=== PATIENT | male | born 1945 | race Caucasian/White ===

== ENCOUNTER → 2024-08-22 10:24 | Outpatient (REF) | payer MEDICARE, OTHER, SELFPAY ==
[2024-08-22 15:49] LABS: % Basophils 0.4 % (0-2); % Eosinophils 3.3 % (0-6); % Immature Granulocytes 4.3 % (0-0.5); % Lymphocytes 13.8 % (20.5-51.1); % Monocytes 8.5 % (1.7-9.3); % Neutrophils 69.7 % (42.2-75.2); Absolute Basophils 0.1 10^3/uL (0-0.2); Absolute Eosinophils 0.6 10^3/uL (0-0.7); Absolute Immature Granulocytes 0.7 10^3/uL (0-0.05); Absolute Lymphocytes 2.3 10^3/uL (1.2-3.4); Absolute Monocytes 1.4 10^3/uL (0.1-0.6); Absolute Neutrophils 11.7 10^3/uL (1.4-6.5); Hematocrit 40.1 % (39.0-52.0); Hemoglobin 13.2 g/dL (13.0-18.0); Mean Corp Hgb Conc. 32.9 g/dL (33.0-37.0); Mean Corpuscular Hgb 32.8 pg (27.0-31.0); Mean Corpuscular Volume 99.8 fL (80.0-94.0); Mean Platelet Volume 8.8 fL (7.4-10.4); Nucleated Red Blood Cells % 0 % (-); Platelet Count 352 10^3/uL (130-400); Red Blood Cell Count 4.02 10^6/uL (4.70-6.10); Red Cell Dist. Width 11.6 % (11.5-14.5); Urine Albumin Negative (Neg - Trace); Urine Bilirubin Negative (Negative); Urine Character Slightly Cloudy (Clear); Urine Color Yellow; Urine Glucose Negative (Negative); Urine Ketone Negative (Negative); Urine Leukocyte Negative (Negative); Urine Nitrite Negative (Negative); Urine Occult Blood Negative (Negative); Urine Specific Gravity 1.015 (<1.030); Urine Urobilinogen Negative (Neg - 1+); White Blood Cell Count 16.7 10^3/uL (4.8-10.8)
[2024-08-22 15:50] LABS: ALT (SGPT) 16 U/L (0-50); AST (SGOT) 16 U/L (17-59); Alkaline Phosphatase 92 U/L (38-126); Blood Urea Nitrogen 33 mg/dl (9-20); Calcium 10.9 mg/dl (8.4-10.2); Carbon Dioxide 27 mmol/L (22-30); Chloride 102 mmol/L (98-107); Creatine Phosphokinase 21 U/L (55-170); Direct Bilirubin 0.1 mg/dl (0.0-0.4); Glucose 75 mg/dl (70-99); HDL Cholesterol 50 mg/dl; LDL Cholesterol, Calculated 96 mg/dl; Phosphorus 3.9 mg/dl (2.5-4.5); Potassium 4.5 mmol/L (3.5-5.1); Sodium 140 mmol/L (135-145); Total Bilirubin 0.5 mg/dl (0.2-1.3); Total Cholesterol 181 mg/dl (50-199); Total Protein 6.7 g/dl (6.3-8.2); Triglyceride 175 mg/dl (10-149); Very Low Density Lipoprotein 35 mg/dl (0-30); eGFR 38.05
[2024-08-22 16:17] LABS: TSH 2.19 uIU/ml (0.47-4.68)
== END ==
LOC: HWLAB 10:24
PROVIDERS: ATTENDING PHYSICIAN Internal Medicine Cardiovascular Disease; FAMILY PHYSICIAN Family Medicine; REFERRING PHYSICIAN Student in an Organized Health Care Education/Training Program
DX: J20.9 Acute bronchitis, unspecified (principal); E78.2 Mixed hyperlipidemia; I10 Essential (primary) hypertension; E07.9 Disorder of thyroid, unspecified; E78.5 Hyperlipidemia, unspecified
CPT/HCPCS: 36415; 71046; 80053; 80061; 81003; 82248; 82550; 83735; 84100; 84439; 84443; 84550; 85025

== ENCOUNTER 2024-09-12 19:54 | Inpatient (IN) | payer MEDICARE, OTHER, SELFPAY ==
[2024-09-12] VITALS (9 sets, daily range): BP systolic 95–159; BP diastolic 50–139; BMI 22.8; BMI 21.4
[2024-09-12 14:55] LABS: % Basophils 0.5 % (0-2); % Eosinophils 2.3 % (0-6); % Immature Granulocytes 1.3 % (0-0.5); % Lymphocytes 22.8 % (20.5-51.1); % Monocytes 8.7 % (1.7-9.3); % Neutrophils 64.4 % (42.2-75.2); Absolute Eosinophils 0.2 10^3/uL (0-0.7); Absolute Immature Granulocytes 0.1 10^3/uL (0-0.05); Absolute Lymphocytes 1.8 10^3/uL (1.2-3.4); Absolute Monocytes 0.7 10^3/uL (0.1-0.6); Absolute Neutrophils 5.1 10^3/uL (1.4-6.5); Hematocrit 34.8 % (39.0-52.0); Hemoglobin 11.6 g/dL (13.0-18.0); Mean Corp Hgb Conc. 33.3 g/dL (33.0-37.0); Mean Corpuscular Hgb 31.6 pg (27.0-31.0); Mean Corpuscular Volume 94.8 fL (80.0-94.0); Mean Platelet Volume 8.7 fL (7.4-10.4); Nucleated Red Blood Cells % 0 % (-); Platelet Count 316 10^3/uL (130-400); Red Blood Cell Count 3.67 10^6/uL (4.70-6.10); Red Cell Dist. Width 11.5 % (11.5-14.5); White Blood Cell Count 7.8 10^3/uL (4.8-10.8)
[2024-09-12 15:04] LABS: COVID-19 Antigen Negative (Negative)
[2024-09-12 15:17] LABS: ALT (SGPT) 17 U/L (0-50); AST (SGOT) 17 U/L (17-59); Albumin 4.3 g/dl (3.5-5.0); Alkaline Phosphatase 82 U/L (38-126); Blood Urea Nitrogen 33 mg/dl (9-20); Calcium 12.8 mg/dl (8.4-10.2); Carbon Dioxide 29 mmol/L (22-30); Chloride 102 mmol/L (98-107); Glucose 104 mg/dl (70-99); Potassium 5.6 mmol/L (3.5-5.1); Sodium 139 mmol/L (135-145); Total Bilirubin 0.6 mg/dl (0.2-1.3); Total Protein 7.1 g/dl (6.3-8.2); eGFR 25.65
--- NOTE | 2024-09-12 16:55 | ED.GENMED ---
History of Present Illness
General
Chief Complaint: Breathing Problem
Source: patient
Time Seen by Provider: 09/12/24 16:30
History of Present Illness
History of Present Illness:
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
oxygen 2 L via nasal cannula at the beginning of August, increased to 3 L via nasal cannula due to worsening exertional dyspnea. Patient notes that he recently completed a 10-day course of amoxicillin about a week ago for pneumonia but reports
continued cough, intermittent yellow-green sputum production and worsening exertional dyspnea. Patient denies any fevers, chest pain, palpitations, diaphoresis, lower extremity edema, abdominal pain. He notes that he has been feeling he needs to
use his inhalers more frequently despite already taking them 4 times per day on a normal basis. Patient notes that he also intermittently feels that he is having some word finding problems stating at times he feels that he cannot find the right
word that he wants to say or knows what he wants to say but he cannot get the words out. This has been ongoing for an unknown duration of time. Patient notes the recent passing of his younger brother, and aunt and believes he has also been
experiencing a lot of anxiety from this.
Past History
Past History
ED Past Medical History: Asthma, CAD and COPD
ED Past Surgical History: Cardiac (Cardiac stent)
Social History
Tobacco: Former smoker
Alcohol: None
Drug: None
Personal:
Living: alone
Review of Systems
Review of Systems
All Other Systems: ROS reviewed and negative except as documented in HPI and ROS
Phy Exam
Physical Exam
Physical Exam:
GENERAL: Alert , in no apparent distress
HEAD: Normocephalic atraumatic
EYE: conjunctiva clear
NECK: Supple
ENT: o/p clr, mmm.
CARDIAC: Regular rate and rhythm, occasional PACs seen on telemetry
LUNGS: Diminished lung sounds throughout with scattered wheezing, no tachypnea, no accessory muscle use, patient speaking full sentences but soft spoken
NEUROLOGICAL: Alert and oriented
SKIN: Warm and dry, skin intact.
MUSCULOSKELETAL: well perfused. no edema
PSYCH: Normal and appropriate interaction.
Scores
Heart Failure Risk
Heart Failure Risk Score: Not Applicable
Heart Score for Chest Pain Patients
STEMI patient?: Not applicable
Withdrawal Assessment of Alcohol
Withdrawal Assessment Completed?: Not applicable
Course
Orders/Labs/Results
Orders:
Orders
09/12/24 14:36
Electrocardiogram (*1) Urgent
Reason for Study: Chest Pain
CR Chest - 2 Views Urgent
Comment:
Reason For Exam: sob
09/12/24 14:38
COVID-19 Antigen Urgent
Source: Nasal Swab
Complete Blood Count/With Diff Urgent
Comprehensive Metabolic Panel Urgent
Influenza A+B Rapid Molecular Urgent
CHRISTIAN Source: Nasal Swab
Specimen Description:
09/12/24 16:41
Add On- LAB Urgent
Tests Added?: troponin, BNP
09/12/24 16:48
Pro-BNP [NT-proBNP] Urgent
Troponin I Urgent
09/12/24 16:54
Ipratropium/Albuterol Sulfate [Duoneb] 3 ml INH R NOW ONE
MethylPREDNISolone PF [Solu-Medrol Pf] 60 mg IV NOW STA
Abnormal Lab Results
09/12/24
14:38
RBC 3.67 L 10^6/uL
(4.70-6.10)
Hgb 11.6 L g/dL
(13.0-18.0)
Hct 34.8 L %
(39.0-52.0)
MCV 94.8 H fL
(80.0-94.0)
MCH 31.6 H pg
(27.0-31.0)
Abs Immat Gran (auto) 0.1 H 10^3/uL
(0-0.05)
Absolute Monos (auto) 0.7 H 10^3/uL
(0.1-0.6)
Immature Gran % 1.3 H %
(0-0.5)
Potassium 5.6 H mmol/L
(3.5-5.1)
BUN 33 H mg/dl
(9-20)
Creatinine 2.5 H mg/dL
(0.7-1.3)
Glucose 104 H mg/dl
(70-99)
Calcium 12.8 H mg/dl
(8.4-10.2)
09/12/24 14:38
09/12/24 14:38
Vital Signs
Initial and Last Documented VS:
Initial Vital Signs
Temp Pulse Resp BP Pulse Ox
98.4 F 76 22 108/50 96
09/12/24 14:28 09/12/24 14:28 09/12/24 14:28 09/12/24 14:28 09/12/24 14:28
Last Documented Vital Signs
Temp Pulse Resp BP Pulse Ox
98.4 F 70 17 95/59 98
09/12/24 14:28 09/12/24 16:45 09/12/24 16:45 09/12/24 16:38 09/12/24 16:45
MDM/Problems Addressed
Differential Diagnosis Includes:
Acute on chronic COPD exacerbation, recurring pneumonia, valvular dysfunction, cardiac arrhythmia, PE considered however no chest pain, tachycardia or hemoptysis. CHF, anxiety/depression due to recent family deaths
MDM/Problems Addressed:
79-year-old male presenting to the emergency department for evaluation at the request of his steam table worker for worsening exertional dyspnea. Patient is quite thin, soft spoken. Has increased his oxygen from 2 L to 3 although noting his new oxygen
requirement is a new diagnosis/treatment over the last month as well. Patient currently satting 98% on 3 L via nasal cannula. Labs initiated on arrival show no leukocytosis, mild anemia, mild hyperkalemia and acute on chronic renal dysfunction. A
troponin and BNP were added. Chest x-ray shows findings consistent with COPD but no pneumonia or effusions. EKG without ischemic changes but there is occasional PACs. Given patient's medical history plan will be for admission pending remaining ER
workup.
Chronic conditions affecting care: COPD
Acute Exacerbation and/or Progression of Chronic Illness: COPD
*Pulse Oximetry
Patient hypoxic: yes
*EKG
Interpreted by ED Provider?: Yes
Heart Rate: 72
Rate: normal
Rhythm: sinus and PAC's
[place]: normal axis
Ischemia: no ischemia
*Pediatric Assistant Interpretation
Rate: normal
Rhythm: sinus
*Critical Care Note
Total Time (30-74mins, 75-104mins- exclusive of procedures): Not Applicable
Data Reviewed
Review of Other/Old Records Reveals: Labs and Records
Source: patient and records
Patient Management
Discussion with other providers: Hospitalist
Escalation/DeEscalation of care consider admission/obs:
Patient's troponin and BNP are within normal limits. Suspect COPD exacerbation likely secondary to recent pneumonia is the most likely diagnosis. Patient will also need further evaluation of his acute kidney injury. Hospitalist team accepts for
continued evaluation and treatment.
ED Attending Note
-
Portions of this chart may have been created with voice recognition software.� Occasional wrong word or��sound alike� substitutions may have occurred due to the inherent limitations of voice recognition software.
Discharge Plan
Departure
Patient Disposition: Admit
Date of Disposition: 09/12/24
Time of Disposition: 17:42
Presentation/result/management discussed w/ accepting MD/DO: Hospitalist
Discharge Problem:
Acute exacerbation of chronic obstructive pulmonary disease, LILIAN (acute kidney injury)
Prescriptions:
No Action
aspirin 325 MG tablet
325 mg PO DAILY
alprazolam 1 MG tablet
1 mg PO TID
Patient Comments:
06/03/2021: last filled 04/07/21, 270 tabs for 90 days from [facility]
lisinopril 20 MG tablet
20 mg PO DAILY
cyanocobalamin (vitamin B-12) 1,000 MCG tablet
2,000 mcg PO QPM
amlodipine 5 MG tablet
5 mg PO DAILY
sildenafil [Viagra] 100 MG tablet
100 mg PO DAILYPRN PRN (Reason: ed)
promethazine-phenylephrine [Promethazine VC] 473 ML syrup
5 ml PO Q6HPRN PRN (Reason: cough)
budesonide 0.25 MG/2 ML suspension for nebulization
0.25 mg inhalation R BID@
Patient Comments:
mixed in a neb with brovana
folic acid 1 MG tablet
1 mg PO QPM
albuterol sulfate 1 PUFF HFA aerosol inhaler
2 puff inhalation R Q4HPRN PRN (Reason: sob)
finasteride 5 MG tablet
5 mg PO DAILY
Saccharomyces boulardii 250 MG capsule
250 mg PO QPM
arformoterol [Brovana] 15 MCG/2 ML solution for nebulization
15 mcg inhalation R BID@
cholecalciferol (vitamin D3) 2,000 UNITS tablet
2,000 units PO QPM
umeclidinium-vilanterol [Anoro Ellipta] 1 EACH blister with device
1 puff inhalation R DAILY
ipratropium-albuterol 3 ML solution for nebulization
3 ml inhalation R Q4HPRN PRN (Reason: dyspnea) Qty: 20 0RF
azithromycin 250 MG tablet
250 mg PO DAILY Qty: 5 0RF
benzonatate 100 MG capsule
100 mg PO TIDPRN PRN (Reason: cough) Qty: 20 0RF
acetylcysteine 4 ML solution
2 ml inhalation R Q6 Qty: 20 0RF
guaifenesin [Mucus Relief ER] 600 MG tablet extended release 12hr
600 mg PO Q12 0RF
prednisone 10 MG tablet
10 mg PO DAILY Qty: 60 0RF
Rx Instructions:
5 tabs daily x 3d, 4 tabs daily x 3d, 3 tabs daily x 3d, 2 tabs daily x 3d, 1 tab daily x 3d, 1/2 tab daily thereafter.
Interventions
Interventions:
*Risk Screen - Suicide Last Done: 09/12/24 14:28
*General Assessment Last Done: 09/12/24 14:28
*Neglect/Abuse Screening Last Done: 09/12/24 14:28
*ED COVID-19 Vaccine History Last Done: 09/12/24 16:51
ED- Cardiac Assessment Last Done: 09/12/24 16:41
ED- Pulmonary Assessment Last Done: 09/12/24 16:41
Discharge Date and Time
Print Language: JORDANIAN
[2024-09-12] MEDS: DUONEB 3 ML INH ×2 (17:11→21:39)
[2024-09-12] MEDS: SOLU-MEDROL PF 60 MG IV (17:11)
[2024-09-12 17:31] LABS: NT-proBNP 282 pg/ml; Troponin I < 0.012 ng/ml
--- NOTE | 2024-09-12 18:00 | HPS.HSE ---
Addendum entered and electronically signed by Ivon Issa DO 09/13/24 01:30:
The patient is seen and examined, and I have reviewed the patient with ECHO VASCULAR TECH, Phil[place], and agree with her history and physical, assessment and plan of care as per below.
Vital reviewed
Labs reviewed
Respiratory status is stable at this time
Lungs with decreased breath sounds, NAD
CV no m/r/g
Neuro no focal deficits
#Acute exacerbation of COPD
-Pulm Cx appreciated
-nebs, mucomyst
-Dexa IV TID and wean
-O2 per NC, respiratory therapy, and wean as able
LILIAN on CKD
-cont IV fluids
-repeat BMP in am
Original Note:
Family Physician
-
Family Physician: Jeramie Garcia
Chief Complaint
-
shortness of breath
History of Present Illness
Patient is a 79-year-old male with past medical history significant for COPD, CAD, hypertension and BPH who presented to [place] ED for evaluation for progressively worsening shortness of breath. Patients hris specialist Dr. Acosta recommend patient
present to ED for evaluation of progressively worsening exertional dyspnea. Patient was recently started on home oxygen at 2L approximately one month ago. Since then oxygen has been titrated to 3L for worsening exertional dyspnea. Patient reports
recently completing antibiotic course for pneumonia approximately 1 week ago. He reports he continues to have lingering cough, intermittent sputum production and worsening exertional dyspnea. Patient denies any fever, chills, chest pain, nausea,
vomiting, constipation, diarrhea or urinary symptoms.
Medical History
Past Medical History
Past Medical History: Reports Other
Additional Past Medical History:
COPD
CAD
benign hypertension
BPH
Past Surgical History: Reports Other
Additional Past Surgical History:
cardiac stent
basal cell carcinoma removed
Social History
Tobacco: Former Smoker (quit in 1996)
Alcohol: None
Drug: None
Living: Alone
Employment: Retired
Family History
Family History: Not pertinent
Allergies / Home Medications
Allergies reflects when Allergies were last updated in [employer].
Home Medications with original date entered in [employer]
Allergy/Medication List:
Allergies
Allergy/AdvReac Type Severity Reaction Status Date / Time
Tetanus Vaccines and Toxoid Allergy Severe Shortness Verified 09/12/24 14:35
[Tetanus] of Breath
clarithromycin [From Biaxin] Allergy Vomiting Verified 09/12/24 14:35
Home Medications
aspirin 325 mg tablet 325 mg PO DAILY Blood clot prevention/tx 11/03/09
Saccharomyces boulardii 250 mg capsule 250 mg PO QPM Gastrointestinal issue 06/03/21
alprazolam 1 mg tablet 1 mg PO TID PRN Mental Health/Anxiety 06/03/21
amlodipine 5 mg tablet 5 mg PO DAILY Blood pressure 06/03/21
arformoterol 15 mcg/2 mL solution for nebulization (Brovana) 15 mcg inhalation R BID@1200,2000 osteoporosis 06/03/21
cholecalciferol (vitamin D3) 50 mcg (2,000 unit) tablet 2,000 units PO QPM Supplement 06/03/21
cyanocobalamin (vitamin B-12) 1,000 mcg tablet 2,000 mcg PO QPM Supplement 06/03/21
finasteride 5 mg tablet 5 mg PO DAILY Urinary issue 06/03/21
folic acid 1 mg tablet 1 mg PO QPM Supplement 06/03/21
lisinopril 20 mg tablet 20 mg PO DAILY Blood pressure 06/03/21
sildenafil 100 mg tablet (Viagra) 100 mg PO DAILYPRN PRN ed 06/03/21
umeclidinium 62.5 mcg-vilanterol 25 mcg/actuation powdr for inhalation (Anoro Ellipta) 1 puff inhalation R DAILY Lung/breathing issues 06/03/21
acetylcysteine 100 mg/mL (10 %) solution 2 ml inhalation R Q6 #20 vials 06/10/21
benzonatate 100 mg capsule 100 mg PO TIDPRN PRN cough #20 caps 06/10/21
Prostagenix 1 tab PO DAILY 09/12/24
albuterol sulfate 90 mcg/actuation aerosol inhaler (Ventolin HFA) 2 puff inhalation 6XD PRN sob 09/12/24
atorvastatin 40 mg tablet 40 mg PO QPM 09/12/24
guaifenesin 600 mg tablet, extended release 12 hr (Mucus Relief ER) 600 mg PO DAILY 09/12/24
ipratropium 0.5 mg-albuterol 3 mg (2.5 mg base)/3 mL nebulization soln 3 ml inhalation BIDPRN PRN dyspnea 09/12/24
prednisone 2.5 mg tablet 1.25 mg PO BID 09/12/24
Review of Systems
-
History Source: Patient and Family
Constitutional: Reports No Symptoms
EENT: Reports No Symptoms
Respiratory: Reports Cough and Other (exertional dyspnea)
Cardiac: Reports No Symptoms
Abdomen/GI: Reports No Symptoms
: Reports No Symptoms
Musculoskeletal: Reports No Symptoms
Skin: Reports No Symptoms
Neurological: Reports No Symptoms
Endocrine: Reports No Symptoms
Hematologic/Lymphatic: Reports No Symptoms
Psych: Reports No Symptoms
Physical Exam
Vital Signs
Vital Signs
Temp Pulse Resp BP Pulse Ox
98.4 F 70 17 95/59 98
09/12/24 14:28 09/12/24 16:45 09/12/24 16:45 09/12/24 16:38 09/12/24 16:45
Physical Exam
General: Well Developed, Well Nourished, No Apparent Distress, Comfortable and Conversant
HEENT: NormoCephalic, Moist mucous membranes, Atraumatic, Nose Appears Normal and Ears Appear Normal
Respiratory: Decreased Breath Sounds
Cardiac: S1/S2 and Regular Rhythm; No Murmur, Rub or Gallop
Breast: Deferred by me
GI: Soft, Non Tender, Non Distended and Normal Bowel Sounds; No Organomegaly
Rectal: Deferred by Provider
Genito-urinary: Deferred by me
Musculoskeletal: No Clubbing, No Cyanosis and No Edema
Skin: Warm and IV/Catheter Site; No Rash
Neuro: Awake, Alert, AO x 3 and Nonfocal/grossly intact
Psych: Calm and Intact Judgment/Insight
Laboratory Results
-
09/12/24 14:38
09/12/24 14:38
Laboratory Results
Total Bilirubin 0.6 mg/dl (0.2-1.3) 09/12/24 14:38
AST 17 U/L (17-59) 09/12/24 14:38
ALT 17 U/L (0-50) 09/12/24 14:38
Alkaline Phosphatase 82 U/L (38-126) 09/12/24 14:38
Troponin I < 0.012 ng/ml 09/12/24 16:48
Data Reviewed
-
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 No findings to suggest pneumonia, vascular congestion, pneumothorax or pleural effusion.)
Lab Data: Labs Reviewed by me (BUN 33, Creat 2.5)
Impression/Plan
-
IMPRESSION/PLAN:
#COPD exacerbation
recent PNA treatment out patient finishing antibiotics 1 week ago
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
No findings to suggest pneumonia, vascular congestion, pneumothorax or pleural effusion.
- admit to med/surg
- IV Decadron
- DuoNebs
- Mucomyst Neb
- Mucinex
- consult pulmonary
- continue Ellipta, Brovana,
- supportive care
#acute kidney injury
BUN 33, Creat 2.5
- IVF
- monitor BMP
#hyperkalemia
K+ 5.6
- monitor BMP
#CAD
- continue aspirin, atorvastatin, and folic acid
#benign hypertension
- continue amlodipine, and lisinopril
#BPH
- continue finasteride
Code status: DNR
DVT Prophylaxis: heparin sq
[2024-09-12] MEDS: MUCOMYST 10% 2 ML INH (21:40)
--- NOTE | 2024-09-12 21:40 | PTCARENOTE ---
Pt arrived from the ED via stretcher. Patient ambulated from the stretcher to the bed. 96% on on 3L NC. Patient brought in his home O2 machine. Stored safely with patient. No complaints of pain, AAOx3, VSS. Patient short of breath with exertion. Pt
instructed to use the call hernandez for any assistance. Oriented to the room, hernandez is within reach.
[2024-09-12] MEDS: MUCINEX 1200 MG PO (22:39)
[2024-09-12] MEDS: NSS 1000 IV (22:40)
[2024-09-12] MEDS: DECADRON 4 MG IV (22:40)
[2024-09-12] MEDS: XANAX 1 MG PO (22:40)
[2024-09-13] MEDS: MUCOMYST 10% INH ×2 (02:00→08:04)
[2024-09-13 06:56] LABS: % Immature Granulocytes 1.1 % (0-0.5); % Lymphocytes 13.4 % (20.5-51.1); % Monocytes 1.5 % (1.7-9.3); Absolute Immature Granulocytes 0.1 10^3/uL (0-0.05); Absolute Lymphocytes 0.6 10^3/uL (1.2-3.4); Absolute Monocytes 0.1 10^3/uL (0.1-0.6); Absolute Neutrophils 3.9 10^3/uL (1.4-6.5); Hematocrit 31.4 % (39.0-52.0); Hemoglobin 10.5 g/dL (13.0-18.0); Mean Corp Hgb Conc. 33.4 g/dL (33.0-37.0); Mean Corpuscular Hgb 31.8 pg (27.0-31.0); Mean Corpuscular Volume 95.2 fL (80.0-94.0); Mean Platelet Volume 8.5 fL (7.4-10.4); Nucleated Red Blood Cells % 0 % (-); Platelet Count 272 10^3/uL (130-400); Red Cell Dist. Width 11.4 % (11.5-14.5); White Blood Cell Count 4.7 10^3/uL (4.8-10.8)
[2024-09-13 07:15] VITALS: BP 91/46
[2024-09-13 07:19] LABS: Blood Urea Nitrogen 39 mg/dl (9-20); Calcium 12.2 mg/dl (8.4-10.2); Carbon Dioxide 28 mmol/L (22-30); Chloride 103 mmol/L (98-107); Estimated Creatinine Clearance 23 ml/min; Glucose 139 mg/dl (70-99); Sodium 138 mmol/L (135-145); eGFR 25.65
[2024-09-13] MEDS: STRIVERDI RESPIMAT INH (08:04)
--- NOTE | 2024-09-13 09:15 | W.PN.HOSP.TC ---
Today's Communication/Plan
-
LE Venous Doppler, IVF, hold nephrotoxic agents, c/w [place], trend BMP/Electrolytes in the AM.
Assessment / Plan
Assessment / Plan
79 year old Man
#Progressive SOB/Dyspnea
- Has recently been put on supplemental O2 with progression to 3L over one month. CXR + for hyperinflated lungs.
- Echo was done which showed EF 60%. No signs of volume overload
- Etiology uncertain, will check LE Venous Doppler to rule out source of Thromboembolism/PE
#Acute exacerbation of COPD/Pleural Asbestosis
- Received one dose of dexamethasone with little relief in SOB. Prior use of steroids without relief. Suspect less likely reactive airway contribution to dyspnea presentation. Will wean steroids per Pulmonary.
- C/w home regimen of nebs/Mucinex/Pulmicort/Tessalon Pearls TID/duonebs
- Obtain Chest CT
- Pulm following
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
- Elevated Early Childhood Education Coordinator to 2.5 (was 1.8 in 2023), BUN 39.
- Hold Lisinopril. C/w Flomax/Finasteride
- [place] Cath placed
- Nephro following
#Hyperkalemia
- 5.4 -> 6.0. ECG on admission showing peaked T waves
- insulin/dextrose & Lokelma + IVF NS infusion
- repeat BMP in afternoon/tomorrow
#Hypercalcemia - 12.2 on admission.
- PTH ordered
- c/w IVF NS
- Renal U/s Ordered
- Nephro following
#Essential Hypertension - Holding lisinopril as above, holding Amlodipine
#Hypercholesterolemia - c/w Lipitor
#Anxiety - c/w Xanax 1mg TID prn
#BPH - c/w finasteride as above
Diet: Regular
DVT Ppx - heparin SC
Code Status - DNR
Anticipated Discharge: > 48 hours
Subjective/Interval History
-
Feeling about the same as when he came in. Still short of breath, however no new fevers or chills.
Objective Data
-
Labs:
Laboratory Results
09/13/24
06:26
WBC 4.7 L
Hgb 10.5 L
Hct 31.4 L
Plt Count 272
Sodium 138
Potassium 6.0 H
Chloride 103
Carbon Dioxide 28
BUN 39 H
Creatinine 2.5 H
Glucose 139 H
Calcium 12.2 H
Vital Signs:
Vital Signs
Temp Pulse Resp BP Pulse Ox
97.4 F 65 20 91/46 98
09/13/24 07:15 09/13/24 07:15 09/13/24 07:15 09/13/24 07:15 09/13/24 07:15
I&O
09/12/24 09/13/24 09/14/24
06:59 06:59 06:59
Intake Total 1120 / 1120
Output Total 200 / 200 100 / 100
Balance 920 / 920 -100 / -100
Review of Systems
-
History Source: Patient
Constitutional: Denies Fever or Chills
EENT: Denies Sore Throat or Runny Nose
Respiratory: Reports Trouble Breathing; Denies Cough, Hemoptysis, Wheezing or Pleurisy
Cardiac: Denies Chest Pain, Palpitations or Syncope
Abdomen/GI: Denies Abdominal Pain, Nausea, Vomiting or Diarrhea
Breast: Reports N/A
Genitourinary: Reports Incontinence; Denies Dysuria, Frequency or Flank Pain
Musculoskeletal: Denies Joint Pain, Joint Swelling or Muscle Pain
Skin: Denies Itching or Rash
Neuro: Reports Weakness; Denies Dizzy or Headache
Hematologic / Lymphatic: Denies Bleeding
Physical Exam
-
General: Well Developed, Well Nourished, No Apparent Distress and Appears Chronically Ill
HEENT: Normocephalic, Atraumatic, Moist Mucous Membranes, Anicteric, [place] Conjunctivae, PERRLA, Nose Appears Normal, Ears Appear Normal and Oxygen (Nasal Cannula)
Respiratory: Decreased Breath Sounds
Cardiac: Regular Rhythm and S1/S2; Negative Murmur or Rub
GI: Soft, Nontender, Nondistended and Normal Bowel Sounds
Musculoskeletal: No Clubbing, No Cyanosis and No Edema
Skin: Warm, Dry and IV Access / Catheter Site
Neuro: AO x 3
[2024-09-13] MEDS: DECADRON 4 MG IV ×2 (09:17→21:11)
[2024-09-13] MEDS: ASPIRIN 325 MG PO (09:18)
[2024-09-13] MEDS: PROSCAR 5 MG PO (09:18)
[2024-09-13] MEDS: MUCINEX 1200 MG PO ×2 (09:18→21:10)
[2024-09-13] MEDS: NORVASC 5 MG PO (09:25)
[2024-09-13] MEDS: ZESTRIL 20 MG PO (09:26)
--- NOTE | 2024-09-13 09:28 | CON.PUL ---
Consultation
Consultation Request
Date/Time Consultation Requested: 09/13
Date/Time Consultation Performed: 09/13
Reason for Consultation: COPD, shortness of breath
Medical History
-
History of Present Illness:
History obtained from the patient and reviewing the records. Patient is a 79-year-old male with history of COPD, coronary disease on home oxygen over the past month. Patient sees pulmonary at [facility]. He is describing worsening shortness of
breath over the past few weeks with increased fatigue, weak dry cough. He did complete a course of antibiotics 1 week ago. He saw his pulmonary physician on the day of admission, and pulmonary physician recommended he go to the ED. Patient came
to [place] as he now recently moved to the [place] area. Upon arrival, afebrile, pulse 76, breathing at 22, blood pressure 108/50, 96%. Chest x-ray without acute findings. Patient was noted to require 3 L. Patient was admitted for COPD
exacerbation. We are asked to help from pulmonary standpoint
On further questioning, patient states he is profoundly weak over the past month. He denies any recent falls, hemoptysis, fevers, chills. He has been treated with steroids and antibiotics over the past 1 to 2 months although I could not confirm
this. Patient is on outpatient inhaler regimen for COPD, feels he is requiring albuterol more often. Patient lives with family
.
PMH: Hypertension, hyperlipidemia, history of coronary disease with stent in the past, COPD recently placed on oxygen therapy in August 2024, history of aortic aneurysm, suspected asbestos lung disease with calcified pleural plaque, BPH
Past Medical History
Past Medical History: None (See above)
Past Surgical History: None (See above)
Social History
Tobacco: Former Smoker (Less than [id number], quit 1996)
Alcohol: None
Drug: None
Personal:
Living: With Family
Employment: Retired
Environmental Exposures: Exposed to asbestos in the past
Family History
Family History: Other (Known history of lung disease, lung cancer)
Allergies / Home Medications
Allergies
Allergy/AdvReac Type Severity Reaction Status Date / Time
Tetanus Vaccines and Toxoid Allergy Severe Shortness Verified 09/12/24 14:35
[Tetanus] of Breath
clarithromycin [From Biaxin] Allergy Vomiting Verified 09/12/24 14:35
Home Medications
�Medication �Instructions �Recorded �Confirmed �Last Taken �Type
aspirin 325 mg tablet 325 mg PO DAILY Blood clot 11/03/09 09/12/24 06/03/21 History
prevention/tx
Saccharomyces boulardii 250 mg 250 mg PO QPM Gastrointestinal 06/03/21 09/12/24 06/03/21 History
capsule issue
alprazolam 1 mg tablet 1 mg PO TID PRN Mental 06/03/21 09/12/24 06/03/21 History
Health/Anxiety
amlodipine 5 mg tablet 5 mg PO DAILY Blood pressure 06/03/21 09/12/24 06/03/21 History
arformoterol 15 mcg/2 mL solution 15 mcg inhalation R BID@1200,2000 06/03/21 09/12/24 Unknown History
for nebulization (Brovana) osteoporosis
cholecalciferol (vitamin D3) 50 2,000 units PO QPM Supplement 06/03/21 09/12/24 06/03/21 History
mcg (2,000 unit) tablet
cyanocobalamin (vitamin B-12) 2,000 mcg PO QPM Supplement 06/03/21 09/12/24 06/03/21 History
1,000 mcg tablet
finasteride 5 mg tablet 5 mg PO DAILY Urinary issue 06/03/21 09/12/24 06/03/21 History
folic acid 1 mg tablet 1 mg PO QPM Supplement 06/03/21 09/12/24 06/03/21 History
lisinopril 20 mg tablet 20 mg PO DAILY Blood pressure 06/03/21 09/12/24 09/12/24 History
sildenafil 100 mg tablet (Viagra) 100 mg PO DAILYPRN PRN ed 06/03/21 09/12/24 Unknown History
umeclidinium 62.5 mcg-vilanterol 1 puff inhalation R DAILY 06/03/21 09/12/24 06/03/21 History
25 mcg/actuation powdr for Lung/breathing issues
inhalation (Anoro Ellipta)
benzonatate 100 mg capsule 100 mg PO TIDPRN PRN cough #20 caps 06/10/21 09/12/24 Unknown Rx
Prostagenix 1 tab PO DAILY Supplement 09/12/24 09/12/24 Unknown History
albuterol sulfate 90 mcg/actuation 2 puff inhalation 6XD PRN sob 09/12/24 09/12/24 Unknown History
aerosol inhaler (Ventolin HFA)
atorvastatin 40 mg tablet 40 mg PO QPM High Cholesterol 09/12/24 09/12/24 Unknown History
guaifenesin 600 mg tablet, 600 mg PO DAILY Congestion 09/12/24 09/12/24 Unknown History
extended release 12 hr (Mucus
Relief ER)
ipratropium 0.5 mg-albuterol 3 mg 3 ml inhalation BIDPRN PRN dyspnea 09/12/24 09/12/24 Unknown History
(2.5 mg base)/3 mL nebulization
soln
prednisone 2.5 mg tablet 1.25 mg PO BID Autoimmune Disorder 09/12/24 09/12/24 Unknown History
acetylcysteine 100 mg/mL (10 %) 2 ml inhalation R Q6 09/13/24 Unknown History
solution Lung/Breathing Issues
Review of Systems
-
All other systems: Negative unless noted
Vitals / Labs / Diagnostic Testing
Vital Signs
Temp Pulse Resp BP Pulse Ox
97.4 F 65 20 91/46 98
09/13/24 07:15 09/13/24 07:15 09/13/24 07:15 09/13/24 07:15 09/13/24 07:15
Lab Data
09/13/24 06:26
09/13/24 06:26
Microbiology
09/12/24 14:38 Nasal Swab Influenza Types A & B (PACO) - Final
Negative for Influenza A & B, NAAT
Negative results must be combined with clinical observations
and patient history.
Nucleic Acid Amplification test (NAAT)performed on the
[employer] platform.
Diagnostic Testing:
Physical Exam
-
HEENT: Normocephalic, Anicteric and Other (Patient generally weak)
Cardiovascular: S1/S2, Regular Rhythm, Murmur (2/6 systolic murmur left sternal border), Peripheral Edema (n) and Calf Tenderness (n)
Respiratory: Wheeze (n), Rales (n), Rhonchi (n), Non-Labored Respirations and Other (Decreased breath sounds, poor air movement)
GI: Soft, Non Distended and Non Tender
Neurology: Awake, Alert and No Motor Deficits (Generally weak, moves all extremities)
Skin: Other (Mild pallor, no cyanosis, no rash)
General: Comfortable
Assessment
-
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
respiratory symptoms, admitted for acute COPD exacerbation, hypoxic respiratory insufficiency requiring 3 L
Progressive dyspnea x 1 month
Failed outpatient course of antibiotics and steroids over the past month
Per primary engine monitor at [facility] ([facility])
Persistent bronchitis
Leukopenia
Hyperkalemia
Acute renal insufficiency, creatinine 2.4
1.81 2 weeks prior, 1.2 in 07/09/2023
Hypercalcemia
Aortic sclerosis per echo
Normal RV size and function, PA pressure 31
Per echo 09/13/2024
Abnormal EKG
Marginal blood pressure
Conditions present prior to admission
Hypertension/hyperlipidemia
History of coronary disease with stent in the past
Moderate to severe emphysema per imaging 2021
Pleural calcifications, consistent with asbestos related lung disease
Pulmonary cachexia, weight loss
Chronic hypoxia, on home oxygen since August 2024
DNR
Plan/recommendations
At this time, patient with complex set of findings.
Progressive shortness of breath, weakness, fatigue x 1 month despite steroids and antibiotics as outpatient, per primary, neurologist
Hypercalcemia is also noted, renal insufficiency is also noted
CT chest from 2021 with pleural calcifications
Current chest x-ray without any obvious acute findings
Moving forward
It appears that his oxygen requirement is new over the past 1 month
There does not appear to be any obvious changes in his chest x-ray, he had an x-ray 2 weeks ago which was unremarkable
Echocardiogram with normal biventricular function, no obvious explanation for oxygen requirement
He does have moderate emphysema per imaging in 2021
For now continue with IV fluids
Would benefit from close follow-up of calcium. Patient is profoundly weak, deconditioned
I wonder if it is this weakness and deconditioning which is contributing to his shortness of breath secondary to his hypercalcemia
Chest x-ray without acute findings
There is no active wheezing on exam
I would favor rapid decrease of steroids
Will check lower extremity Dopplers to rule out DVT
Transition to nebulized therapy. Patient is profoundly weak
I would consider hypercalcemia workup
This may include CT imaging but for now we will hold off
Check renal ultrasound
Repeat EKG. Hyperkalemia noted
DVT prophylaxis: Continue subcutaneous heparin
GI prophylaxis: Not indicated
Reviewed with patient, reviewed with primary service
We will follow
[2024-09-13] MEDS: DUONEB 3 ML INH ×3 (11:29→20:19)
[2024-09-13] MEDS: PULMICORT 0.5 MG INH ×2 (11:29→20:19)
[2024-09-13] MEDS: LOKELMA 10 GRAM PO ×3 (11:40→17:26)
[2024-09-13] MEDS: DEXTROSE 50% SYRINGE 12.5 GRAMS IV (11:40)
[2024-09-13] MEDS: NOVOLIN R 0.1 UNITS IV (11:54)
[2024-09-13 11:58] LABS: Glucose - Point of Care 176 mg/dl (70-99)
--- NOTE | 2024-09-13 13:17 | W.CON.NEPH ---
Consultation
-
Date/Time Consultation Requested: 09/13/24 1016
Date/Time Consultation Performed: 09/13/24 1220
Requesting Provider: Diaz Perez
Performing Provider: Brittnee Lau
Reason for Consultation: LILIAN, hyperkalemia
Medical History
-
Chief Complaint: SOB
History of Present Illness:
79-year-old male with past medical history significant for COPD On inhalers Seen by pulmonary in [place] system, CAD, hypertension on amlodipine and lisinopril and BPH on finasteride, IBS who presented to [place] ED for evaluation for
progressively worsening shortness of breath on 09/12. Patient reported to be having symptoms for almost a month, initially symptoms would improve however for the last few weeks been persistent and he had used antibiotic but had no help and he saw his
wood miller Dr. Acosta Yesterday and recommend patient present to ED. Is currently being treated for COPD exacerbation. On arrival his creatinine was at 2.5, potassium 5.6. Patient reports no previous history of kidney disease however may have
mild urinary retention from BPH, he is in the process Changing his medical care from [place] to [place] as he more locally. Patient denies any fever, chills, chest pain, nausea, vomiting, constipation, diarrhea or urinary symptoms. he
reports through this last 1 month appetite has been low and he lost some weight. For few days he noticed hand shaking. this morning creatinine remains elevated at 2.5, potassium 6, calcium 12.2 hence nephrology was consult at unit he seemed to
also with T wave changes on the EKG. Last creatinine on 22 August was at 1.8,In 2022 was at 1.2.
Past Medical History
COPD
CAD
benign hypertension
BPH
IBS
History of aortic aneurysm
cardiac stent
basal cell carcinoma removed
Social History
Tobacco: Former Smoker (quit in 1996)
Alcohol: None
Drug: None
Living: Alone
Employment: Retired
Family History
father with kidney failure towards end of his life
Allergies / Home Medications
Allergy/AdvReac Type Severity Reaction Status Date / Time
Tetanus Vaccines and Toxoid Allergy Severe Shortness Verified 09/12/24 14:35
[Tetanus] of Breath
clarithromycin [From Biaxin] Allergy Vomiting Verified 09/12/24 14:35
�Medication �Instructions �Recorded �Confirmed �Type
aspirin 325 mg tablet 325 mg PO DAILY Blood clot 11/03/09 09/13/24 History
prevention/tx
Saccharomyces boulardii 250 mg 250 mg PO BID@0900,2200 06/03/21 09/13/24 History
capsule Gastrointestinal issue
alprazolam 1 mg tablet 1 mg PO TID Mental Health/Anxiety 06/03/21 09/13/24 History
amlodipine 5 mg tablet 5 mg PO DAILY Blood pressure 06/03/21 09/13/24 History
arformoterol 15 mcg/2 mL solution 15 mcg inhalation R BID@1200,2000 06/03/21 09/13/24 History
for nebulization (Brovana) osteoporosis
cholecalciferol (vitamin D3) 50 4,000 units PO BID@1200,1630 06/03/21 09/13/24 History
mcg (2,000 unit) tablet Supplement
cyanocobalamin (vitamin B-12) 2,000 mcg PO QPM Supplement 06/03/21 09/13/24 History
1,000 mcg tablet
finasteride 5 mg tablet 5 mg PO DAILY Urinary issue 06/03/21 09/13/24 History
folic acid 1 mg tablet 1 mg PO QPM Supplement 06/03/21 09/13/24 History
lisinopril 20 mg tablet 20 mg PO DAILY Blood pressure 06/03/21 09/13/24 History
umeclidinium 62.5 mcg-vilanterol 1 puff inhalation R DAILY 06/03/21 09/13/24 History
25 mcg/actuation powdr for Lung/breathing issues
inhalation (Anoro Ellipta)
Prostagenix 1 tab PO DAILY Supplement 09/12/24 09/13/24 History
albuterol sulfate 90 mcg/actuation 1 puff inhalation R Q4HPRN PRN sob 09/12/24 09/13/24 History
aerosol inhaler (Ventolin HFA)
guaifenesin 600 mg tablet, 600 mg PO DAILY Congestion 09/12/24 09/13/24 History
extended release 12 hr (Mucus
Relief ER)
ipratropium 0.5 mg-albuterol 3 mg 3 ml inhalation R BID@1200,2030 09/12/24 09/13/24 History
(2.5 mg base)/3 mL nebulization
soln
acetaminophen 650 mg 1,300 mg PO DAILYPRN PRN mild pain 09/13/24 09/13/24 History
tablet,extended release
acetylcysteine 100 mg/mL (10 %) 2 ml inhalation R Q6HPRN PRN chest 09/13/24 09/13/24 History
solution congestion
azithromycin 250 mg tablet 250 mg PO DAILY 09/13/24 09/13/24 History
benzonatate 100 mg capsule 100 mg PO TIDPRN PRN cough 09/13/24 09/13/24 History
ezetimibe 10 mg tablet 10 mg PO HS 09/13/24 09/13/24 History
loperamide 1 mg/7.5 mL oral liquid 2 mg PO DAILYPRN PRN diarrhea 09/13/24 09/13/24 History
(Imodium A-D)
naphazoline 0.22965 %-pheniramine 1 drp BOTH EYES DAILYPRN PRN itchy 09/13/24 09/13/24 History
0.315 % eye drops (Opcon-A) eyes
Review of Systems
-
All complete 12 point ROS have been inquired and found negative other than stated in HPI
Physical Exam
Vital Signs
Vital Signs
Temp Pulse Resp BP Pulse Ox
97.4 F 78 18 129/77 96
09/13/24 07:15 09/13/24 11:32 09/13/24 11:32 09/13/24 09:25 09/13/24 11:32
Lab Results
WBC 4.7 10^3/uL (4.8-10.8) L 09/13/24 06:26
RBC 3.30 10^6/uL (4.70-6.10) L 09/13/24 06:26
Hgb 10.5 g/dL (13.0-18.0) L 09/13/24 06:26
Hct 31.4 % (39.0-52.0) L 09/13/24 06:26
Plt Count 272 10^3/uL (130-400) 09/13/24 06:26
eGFR 25.65 09/13/24 06:26
Ood-V-Nykgbhompdk Pept 282 pg/ml 09/12/24 16:48
Albumin 4.3 g/dl (3.5-5.0) 09/12/24 14:38
Abnormal Lab Results
09/12/24 09/13/24 09/13/24
14:38 06:26 11:57
WBC 4.7 L
RBC 3.67 L 3.30 L
Hgb 11.6 L 10.5 L
Hct 34.8 L 31.4 L
MCV 94.8 H 95.2 H
MCH 31.6 H 31.8 H
RDW 11.4 L
Abs Immat Gran (auto) 0.1 H 0.1 H
Absolute Lymphs (auto) 0.6 L
Absolute Monos (auto) 0.7 H
Immature Gran % 1.3 H 1.1 H
Neutrophils % 84.0 H
Lymphocytes % 13.4 L
Monocytes % 1.5 L
Potassium 5.6 H 6.0 H
BUN 33 H 39 H
Creatinine 2.5 H 2.5 H
Glucose 104 H 139 H
Calcium 12.8 H 12.2 H
POC Glucose 176 H
echo:
CONCLUSIONS
Normal biventricular size and systolic function without regional wall motion
abnormality. LVEF 60%.
Aortic sclerosis without stenosis.
No prior study available for comparison.
renal US:
FINDINGS: The right kidney measures 9.9 cm in length and the left kidney measures 10.5 cm in length.
There are no findings to suggest renal collecting system dilatation bilaterally.
Simple appearing right renal cysts with thin internal septation is seen superiorly measuring 1.6 x 1.5 x 1.5 cm.
Minimally complex interpolar laterally left renal cyst measures 3.0 x 2.4 x 3.0 cm.
The urinary bladder volume is calculated at 183 mL prevoid and 194 mL post void with some layering debris. Bilateral ureteral jets are not seen.
IMPRESSION: No evidence of renal collecting system dilatation bilaterally. Bilateral ureteral jets not visualized.
1.6 cm right renal cyst with thin internal septation and minimally complex 3.0 cm left renal cyst.
Large urinary bladder postvoid residual, as detailed above.
Physical Exam
General: Awake, Alert, Oriented, AOx3, No Distress and Nontoxic
HEENT: EOMI, Anicteric, Conjunctivae Clear, Facial Symmetry and Neck Supple
Respiratory: Normal Excursion, Nonlabored Respirations and Other (decreased BS)
Cardiac: S1/S2 and Regular Rate/Rhythm
Breast: Deferred by me
Abdomen: Soft, Nontender and Nondistended
Musculoskeletal: No Cyanosis and No Edema
Skin: No Rash and Warm
Neuro: Nonfocal/Grossly Intact
Psych: Mood/afflect pleasant, Insight/judgement good and Appropriate
Data Reviewed
-
Radiology: Report Reviewed by me and Discussed with Patient
Labs: Labs Reviewed by me and Discussed with Patient
Assessment/Plan
-
IMP:
COPD exacerbation
acute kidney injury
hyperkalemia
Hypercalcemia
Anemia
CAD
benign hypertension
BPH
Plan:
A/w COPD exacerbation
LILIAN-no clear baseline available, last cr 1.8 2weeks ago, and 1.2 in 2022
UA was bland, repeat urine studies
placed galdamez, PVR 190cc on renal US, no hydro
has complex cyst need f/u out pt, he is set to see DR Venegas
hyperkalemia-EKG changes, temporize with insulin, dextrose
cont LOkelam course and recheck labs later today
check paraprotein w/u, PTH, vit D for hypercalcemia
cont IVF, echo was normal, low BNP
BP soft, monitor for now-holding Amlodipine and ACEI
avoid nephrotoxins
d/w pt in detail
d/w primary team
no emergent need of HD
[2024-09-13] MEDS: NSS 1000 IV (13:44)
[2024-09-13 14:45] LABS: Intact PTH 68.6 pg/ml (13.6-85.8)
[2024-09-13 15:16] VITALS: BMI 21.4
[2024-09-13 15:42] VITALS: BP 115/48
--- NOTE | 2024-09-13 16:05 | W.PN.UPDATE ---
Update Note
Progress Note Update
Seen and examined by me independently in collaboration with the curator medical museum.
Lab data and imaging data reviewed.
Addendum as below :
Subacute progressive SOB with hypoxia.Known COPD with last flare due to pneumonia 4 yr ago needing hospitalization.
Some nonproductive cough. No increased wt or LE edema.
Currently witout active bronchospasm. Decrease breath sounds in general. No clinical signs of heart failure-no JVD, lower extremity edema or crackles. Chest x-ray does not support pneumonia or CHF. Echo shows normal EF without significant VHD.
Pt has hx of pleural asbestos dz but no known parenchymal dz. unclear etiology but would like to rule out PE - check US legs ; cant get CT PE due to LILIAN. Consider VQ.Pulm following. Wean steroids.
LILIAN -patient has some voiding difficulty and was recently started on finasteride. During ultrasound he had a large postvoid residuals. Will place a Caldwell catheter and follow LILIAN and see if this is obstructive uropathy.
Hyper kalemia with some peaked T waves. Hold lisinopril. Patient given dextrose / insulin, and Lokelma. Consult nephrology.
Discussed with pulmonary and renal today.
Total time spent on today's encounter was 52 minutes which included time spent in counseling the patient/family regarding diagnosis and treatment plan as listed above, goals of care, and symptom management. Case was discussed with nursing staff,
specialists, and care coordinators/case management. All labs and imaging personally reviewed by me. Remainder the time spent in detailed review of previous records, lab data, imaging, and other medical provider documentation.
[2024-09-13 17:24] LABS: Blood Urea Nitrogen 46 mg/dl (9-20); Calcium 12.5 mg/dl (8.4-10.2); Carbon Dioxide 25 mmol/L (22-30); Chloride 102 mmol/L (98-107); Estimated Creatinine Clearance 25 ml/min; Glucose 119 mg/dl (70-99); Potassium 5.2 mmol/L (3.5-5.1); Protein/creatinine Ratio 0.3; Sodium 138 mmol/L (135-145); Urine Protein 13 mg/dl; eGFR 28.35
[2024-09-13] MEDS: FOLVITE 1 MG PO (17:25)
[2024-09-13] MEDS: FLORASTOR 250 MG PO (17:25)
[2024-09-13] MEDS: LIPITOR 40 MG PO (17:25)
[2024-09-13] MEDS: VITAMIN B-12 2000 MCG PO (17:25)
[2024-09-13 23:36] VITALS: BP 118/62
[2024-09-14] MEDS: NSS 1000 IV ×2 (03:07→16:08)
[2024-09-14] MEDS: LOKELMA 10 GRAM PO ×3 (05:43→17:09)
[2024-09-14 06:00] VITALS: BMI 21.4
[2024-09-14 06:44] LABS: % Basophils 0.1 % (0-2); % Immature Granulocytes 1.3 % (0-0.5); % Lymphocytes 4.5 % (20.5-51.1); % Monocytes 2.7 % (1.7-9.3); % Neutrophils 91.4 % (42.2-75.2); Absolute Immature Granulocytes 0.2 10^3/uL (0-0.05); Absolute Lymphocytes 0.7 10^3/uL (1.2-3.4); Absolute Monocytes 0.4 10^3/uL (0.1-0.6); Absolute Neutrophils 13.3 10^3/uL (1.4-6.5); Hematocrit 30.4 % (39.0-52.0); Hemoglobin 10.4 g/dL (13.0-18.0); Mean Corp Hgb Conc. 34.2 g/dL (33.0-37.0); Mean Corpuscular Volume 93.5 fL (80.0-94.0); Mean Platelet Volume 8.7 fL (7.4-10.4); Nucleated Red Blood Cells % 0 % (-); Platelet Count 296 10^3/uL (130-400); Red Blood Cell Count 3.25 10^6/uL (4.70-6.10); Red Cell Dist. Width 11.4 % (11.5-14.5); White Blood Cell Count 14.6 10^3/uL (4.8-10.8)
[2024-09-14 07:02] LABS: Albumin 3.4 g/dl (3.5-5.0); Blood Urea Nitrogen 45 mg/dl (9-20); Calcium 11.8 mg/dl (8.4-10.2); Carbon Dioxide 25 mmol/L (22-30); Chloride 105 mmol/L (98-107); Estimated Creatinine Clearance 29 ml/min; Glucose 134 mg/dl (70-99); Phosphorus 4.4 mg/dl (2.5-4.5); Potassium 5.3 mmol/L (3.5-5.1); Sodium 139 mmol/L (135-145); eGFR 33.53
[2024-09-14 07:18] LABS: Vitamin D, 25-OH*** 74.4 ng/mL (30-80)
[2024-09-14 07:20] VITALS: BP 126/80
[2024-09-14] MEDS: DUONEB 3 ML INH ×5 (07:20→22:09)
[2024-09-14] MEDS: STRIVERDI RESPIMAT 2 PUFF INH (07:20)
[2024-09-14] MEDS: PULMICORT 0.5 MG INH ×2 (07:20→20:29)
[2024-09-14] MEDS: DECADRON 4 MG IV ×2 (08:37→20:29)
[2024-09-14] MEDS: PROSCAR 5 MG PO (08:37)
[2024-09-14] MEDS: FLOMAX 0.4 MG PO (08:37)
[2024-09-14] MEDS: ASPIRIN 325 MG PO (08:38)
[2024-09-14] MEDS: MUCINEX 1200 MG PO ×2 (08:38→20:29)
--- NOTE | 2024-09-14 10:01 | W.PN.HOSP.TC ---
Addendum entered and electronically signed by Diaz Heaton MD 09/14/24 12:41:
Seen and examined by me independently in collaboration with the medical scheduler.
Lab data and imaging data reviewed.
Addendum as below :
Patient denies shortness of breath at rest. Still requiring oxygen via nasal cannula. Not much of cough. Chest decreased breath sounds in general but no added sounds. Clinically no evidence of COPD flare. Continue to taper steroids. Wean
oxygen as able. Clinically no evidence of heart failure. Echo showed normal EF. Getting evaluated for thromboembolic disease-peripheral ultrasound of the legs is pending. Check D-dimer and if significant elevated consider VQ scan. Can get a CT
PE study due to LILIAN. Pulmonary following.
Unclear of his shortness of breath symptoms may be associate with generalized weakness as well as hypercalcemia.
Hypercalcemia is not PTH related. On presentation it was moderate range. If remains so, consider pamidronate. Ongoing evaluation for etiology by nephrology.
LILIAN suspect may be obstructive uropathy based on high residuals on the renal ultrasound and history of retentive symptoms. Continue with finasteride. Flomax was added. Continue with Caldwell catheter now improving creatinine.
Hyperkalemia-s/p treatments with improvement. Continue to hold lisinopril.
PT OT eval
Original Note:
Today's Communication/Plan
-
C/w IVF, jaquelinega. Obtain LE Venous Doppler. Pulm/Nephro following.
Assessment / Plan
Assessment / Plan
79 year old Man
#Progressive SOB/Dyspnea
- Has recently been put on supplemental O2 with progression to 3L over one month. CXR + for hyperinflated lungs.
- Echo was done which showed EF 60%. No signs of volume overload
- Etiology uncertain, will check LE Venous Doppler to rule out source of Thromboembolism/PE
#Acute exacerbation of COPD/Pleural Asbestosis
- Received one dose of dexamethasone with little relief in SOB. Prior use of steroids without relief. Suspect less likely reactive airway contribution to dyspnea presentation. Will wean steroids per Pulmonary.
- C/w home regimen of nebs/Mucinex/Pulmicort/Tessalon Pearls TID/duonebs
- Obtain Chest CT
- Pulm following
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
- Elevated Printing Sales Representative to 2.5 (was 1.8 in 2023), BUN 39.
- Hold Lisinopril. C/w Flomax/Finasteride
- Caldwell Cath
- Nephro following
Improvement in wreath machine tender/BUN. Will keep Caldwell for now.
#Hyperkalemia
- 5.4 -> 6.0. ECG on admission showing peaked T waves
- s/p insulin/dextrose & Lokelma + IVF NS infusion
- K 5.4 today. C/w IVF/Lokelma
#Hypercalcemia - 12.2 on admission.
- PTH/Vitamin D wnl. Rest of paraprotein workup per nephro is pending
- c/w IVF NS
#Complex Renal Cyst - Found on Renal u/s. OK to follow up as outpatient with nephro
#Essential Hypertension - Holding lisinopril as above, holding Amlodipine
#Hypercholesterolemia - c/w Lipitor
#Anxiety - c/w Xanax 1mg TID prn
#BPH - c/w finasteride as above
Diet: Regular
DVT Ppx - heparin SC
Code Status - DNR
Anticipated Discharge: > 48 hours
Subjective/Interval History
-
He says he is having some numbness in his legs which is new. Shortness of breath is unchanged, though he is down on his oxygen.
Objective Data
-
Labs:
Laboratory Results
09/14/24
06:25
WBC 14.6 H
Hgb 10.4 L
Hct 30.4 L
Plt Count 296
Sodium 139
Potassium 5.3 H
Chloride 105
Carbon Dioxide 25
BUN 45 H
Creatinine 2.0 H
Glucose 134 H
Calcium 11.8 H
Vital Signs:
Vital Signs
Temp Pulse Resp BP Pulse Ox
97.5 F 71 16 126/80 98
09/14/24 07:20 09/14/24 07:24 09/14/24 07:24 09/14/24 07:20 09/14/24 08:25
I&O
09/13/24 09/14/24 09/15/24
06:59 06:59 06:59
Intake Total 1120 / 1120 192 / 1919
Output Total 200 / 200 2024
Balance 920 / 920 -105 / -105
Review of Systems
-
History Source: Patient
Constitutional: Denies Fever, Night Sweats or Chills
EENT: Denies Sore Throat or Runny Nose
Respiratory: Reports Cough (Dry Cough) and Trouble Breathing; Denies Hemoptysis, Wheezing or Pleurisy
Cardiac: Denies Chest Pain, Diaphoresis, Palpitations or Syncope
Abdomen/GI: Denies Abdominal Pain, Nausea, Vomiting or Diarrhea
Breast: Reports N/A
Genitourinary: Reports Difficulty Voiding; Denies Dysuria or Flank Pain
Musculoskeletal: Denies Joint Pain, Joint Swelling or Muscle Pain
Neuro: Reports Numbness (BL LE)
Physical Exam
-
General: Well Developed, Well Nourished, No Apparent Distress, Comfortable and Appears Chronically Ill
HEENT: Normocephalic, Atraumatic, Moist Mucous Membranes, Anicteric, [place] Conjunctivae, PERRLA, Nose Appears Normal, Ears Appear Normal and Oxygen (3L NC)
Respiratory: Clear to Auscultation and Decreased Breath Sounds; Negative Wheezes, Rales or Rhonchi
Cardiac: Regular Rhythm and S1/S2; Negative Murmur or Rub
GI: Soft, Nontender, Nondistended and Normal Bowel Sounds
Genito-urinary: Clear Urine and Caldwell
Musculoskeletal: No Clubbing, No Cyanosis and No Edema
Skin: Warm, Dry and IV Access / Catheter Site
Neuro: AO x 3
[2024-09-14 11:50] VITALS: BP 131/53; BP 137/54; PULSE 75; O2SAT 95
[2024-09-14 13:51] LABS: D-Dimer 4.98 ug/mlFEU (0.00-0.50)
--- NOTE | 2024-09-14 14:09 | W.PN.PUL3 ---
Today's Communication / Plan
-
No change in steroids
Continue nebulized therapy
Chest exam and clinically has improved
PT/OT
Hypercalcemia treatment
Assessment
-
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
respiratory symptoms, admitted for acute COPD exacerbation, hypoxic respiratory insufficiency requiring 3 L
Progressive dyspnea x 1 month
Failed outpatient course of antibiotics and steroids over the past month
Per primary needle polisher at [facility] ([facility])
Persistent bronchitis
Leukopenia
Hyperkalemia
Acute renal insufficiency, creatinine 2.4
1.81 2 weeks prior, 1.2 in 07/09/2023
Hypercalcemia
Aortic sclerosis per echo
Normal RV size and function, PA pressure 31
Per echo 09/13/2024
Abnormal EKG
Marginal blood pressure
Conditions present prior to admission
Hypertension/hyperlipidemia
History of coronary disease with stent in the past
Moderate to severe emphysema per imaging 2021
Pleural calcifications, consistent with asbestos related lung disease
Pulmonary cachexia, weight loss
Chronic hypoxia, on home oxygen since August 2024
DNR
Plan/recommendations
At this time, patient with complex set of findings.
Progressive shortness of breath, weakness, fatigue x 1 month despite steroids and antibiotics as outpatient, per primary, neurologist
Hypercalcemia is also noted, renal insufficiency is also noted
CT chest from 2021 with pleural calcifications
Current chest x-ray without any obvious acute findings
Today he is somewhat improved, mental status improved
Chest exam, moving air better
Moving forward
It appears that his oxygen requirement is new over the past 1 month
There does not appear to be any obvious changes in his chest x-ray, he had an x-ray 2 weeks ago which was unremarkable
Echocardiogram with normal biventricular function, no obvious explanation for oxygen requirement
He does have moderate emphysema per imaging in 2021
For now continue with IV fluids, nephrology now following for hypercalcemia
He is moving air better on exam
We will continue current dose of dexamethasone, 4 mg twice a day
Dopplers negative for DVT
Continue nebulized therapy for now
May require additional testing for hypercalcemia
Nephrology following
This may include CT imaging but for now we will hold off
Renal ultrasound reviewed
Hyperkalemia slowly improving
DVT prophylaxis: Continue subcutaneous heparin
GI prophylaxis: Not indicated
Reviewed with patient, reviewed with primary service
We will follow
Subjective Data
-
Date of Service:
Date of Service: September 14, 2024
Subjective:
Patient is subjectively improved. He was able to expectorate a plug of mucus and with this he felt improved. Feels somewhat stronger. Denies chest pain, hemoptysis. Appears to be stronger, mental status better, able to converse
Objective Data
Data Reviewed
Vital Signs / I&O / Oxygen:
Vital Signs
Temp Pulse Resp BP Pulse Ox
97.5 F 81 16 126/80 96
09/14/24 07:20 09/14/24 11:51 09/14/24 11:51 09/14/24 07:20 09/14/24 12:30
Intake and Output
09/13/24 09/14/24 09/15/24
06:59 06:59 06:59
Intake Total 1120 / 1120 1919 / 192
Output Total 200 / 200 2024
Balance 920 / 920 -105 / -105
SaO2 96
Nasal Cannula flow liters per 2
minute
Physical Exam
General: Comfortable
HEENT: Normocephalic and Anicteric
Cardiovascular: S1-S2, Regular Rhythm, Murmur (n), Rub (n), Peripheral Edema (n) and Calf Tenderness (n)
Respiratory: Wheeze (Mild), Crackles (n), Rhonchi and Other (Air exchange has improved)
GI: Soft, Non Distended and Non Tender
Neurology: Awake, Alert and No Motor Deficits
Skin: Cyanosis (n), Jaundice (n) and Rash (n)
Labs/Micro/Reports
Lab Data
09/14/24 06:25
09/14/24 06:25
Microbiology
09/12/24 14:38 Nasal Swab Influenza Types A & B (PACO) - Final
Negative for Influenza A & B, NAAT
Negative results must be combined with clinical observations
and patient history.
Nucleic Acid Amplification test (NAAT)performed on the
[employer] platform.
[2024-09-14 15:20] VITALS: BP 114/95
--- NOTE | 2024-09-14 15:44 | W.PN.NEPH.PH ---
Today's Communication / Plan
-
cont IVF
follow labs, consider pamidronate
Assessment/Plan
-
IMP:
COPD exacerbation
acute kidney injury
hyperkalemia
Hypercalcemia
Anemia
CAD
benign hypertension
BPH
Plan:
A/w COPD exacerbation
LILIAN-no clear baseline available, last cr 1.8 2weeks ago, and 1.2 in 2022
UA was bland, U PCR only 0.3gm/gm of cr
PVR 190cc on renal US, no hydro, non oliguric with galdamez, cr improving
has complex cyst need f/u out pt, he is set to see DR Venegas
hyperkalemia-improved, on Lokelma
Hypercalcemia-pt only on Vit D at home-hold for now, no soy meds
PTH is normal(should be suppressed with hypercalcemia) suspect hyperparathyroidism, pending paraprotein w/u
normal vit D, if calcium did not improve likely dose pamidronate
cont IVF, echo was normal, low BNP
BP soft, monitor for now-holding Amlodipine and ACEI
avoid nephrotoxins
d/w pt in detail
-
-
Date of Service: September 14, 2024
CC / HPI / ROS
-
Chief Complaint:
LILIAN, high soy and high k
History of Present Illness:
cr better at 2, non oliguric with galdamez
k better at 5.3, soy slow to improve at 11.8
Bp stable
on O2 NC
Review of Systems:
no cp
sob slow to improve, able to cough up now
no fever
Labs
-
Labs:
WBC 14.6 10^3/uL (4.8-10.8) H 09/14/24 06:25
RBC 3.25 10^6/uL (4.70-6.10) L 09/14/24 06:25
Hgb 10.4 g/dL (13.0-18.0) L 09/14/24 06:25
Hct 30.4 % (39.0-52.0) L 09/14/24 06:25
Plt Count 296 10^3/uL (130-400) 09/14/24 06:25
Sodium 139 mmol/L (135-145) 09/14/24 06:25
Potassium 5.3 mmol/L (3.5-5.1) H 09/14/24 06:25
Chloride 105 mmol/L (98-107) 09/14/24 06:25
Carbon Dioxide 25 mmol/L (22-30) 09/14/24 06:25
BUN 45 mg/dl (9-20) H 09/14/24 06:25
Creatinine 2.0 mg/dL (0.7-1.3) H 09/14/24 06:25
eGFR 33.53 09/14/24 06:25
Glucose 134 mg/dl (70-99) H 09/14/24 06:25
Calcium 11.8 mg/dl (8.4-10.2) H 09/14/24 06:25
Phosphorus 4.4 mg/dl (2.5-4.5) 09/14/24 06:25
Nvc-J-Lhrcmxwbfia Pept 282 pg/ml 09/12/24 16:48
Albumin 3.4 g/dl (3.5-5.0) L 09/14/24 06:25
Physical Exam
-
Vital Signs:
Vital Signs
Temp Pulse Resp BP Pulse Ox
97.5 F 90 16 126/80 98
09/14/24 07:20 09/14/24 14:37 09/14/24 14:37 09/14/24 07:20 09/14/24 14:37
Cardiovascular:: Regular rate and rhythm
Lung Excursion:: Normal (decreased BS)
Abdomen:: Nontender and Soft
Extremity Edema:: None: Bilateral:
Galdamez Catheter: Yes
[2024-09-14] MEDS: FOLVITE 1 MG PO (17:10)
[2024-09-14] MEDS: FLORASTOR 250 MG PO (17:10)
[2024-09-14] MEDS: VITAMIN B-12 2000 MCG PO (17:10)
[2024-09-14] MEDS: LIPITOR PO (17:12)
[2024-09-14 17:48] LABS: Creatine Phosphokinase 22 U/L (55-170)
[2024-09-14] MEDS: XANAX 1 MG PO (22:08)
[2024-09-14 23:18] VITALS: BP 146/60
[2024-09-15] MEDS: NSS 1000 IV ×2 (04:50→16:38)
[2024-09-15 06:00] VITALS: BMI 22.0
[2024-09-15 07:00] VITALS: BP 112/55
[2024-09-15 07:00] LABS: % Basophils 0.1 % (0-2); % Immature Granulocytes 1.4 % (0-0.5); % Monocytes 3.3 % (1.7-9.3); % Neutrophils 90.2 % (42.2-75.2); Absolute Immature Granulocytes 0.2 10^3/uL (0-0.05); Absolute Lymphocytes 0.6 10^3/uL (1.2-3.4); Absolute Monocytes 0.4 10^3/uL (0.1-0.6); Absolute Neutrophils 10.5 10^3/uL (1.4-6.5); Hematocrit 29.3 % (39.0-52.0); Hemoglobin 9.7 g/dL (13.0-18.0); Mean Corp Hgb Conc. 33.1 g/dL (33.0-37.0); Mean Corpuscular Hgb 31.9 pg (27.0-31.0); Mean Corpuscular Volume 96.4 fL (80.0-94.0); Mean Platelet Volume 8.6 fL (7.4-10.4); Nucleated Red Blood Cells % 0 % (-); Platelet Count 268 10^3/uL (130-400); Red Blood Cell Count 3.04 10^6/uL (4.70-6.10); Red Cell Dist. Width 11.5 % (11.5-14.5); White Blood Cell Count 11.7 10^3/uL (4.8-10.8)
[2024-09-15 07:36] LABS: Albumin 3.2 g/dl (3.5-5.0); Blood Urea Nitrogen 44 mg/dl (9-20); Calcium 11.6 mg/dl (8.4-10.2); Carbon Dioxide 25 mmol/L (22-30); Chloride 108 mmol/L (98-107); Estimated Creatinine Clearance 33 ml/min; Glucose 132 mg/dl (70-99); Phosphorus 3.7 mg/dl (2.5-4.5); Potassium 4.6 mmol/L (3.5-5.1); Sodium 141 mmol/L (135-145); eGFR 38.05
[2024-09-15] MEDS: PULMICORT 0.5 MG INH ×2 (08:13→19:40)
[2024-09-15] MEDS: DUONEB 3 ML INH ×4 (08:13→19:40)
[2024-09-15] MEDS: STRIVERDI RESPIMAT 2 PUFF INH (08:13)
--- NOTE | 2024-09-15 08:53 | W.PN.HOSP.TC ---
Addendum entered and electronically signed by Diaz Heaton MD 09/15/24 15:26:
Seen and examined by me independently in collaboration with the biomedical equipment specialist.
Lab data and imaging data reviewed.
Addendum as below :
Improving creatinine with Caldwell catheter IV fluids. Patient was started on Flomax. He is on finasteride. Will give a voiding trial tomorrow.
Hyperkalemia resolved but still hypercalcemic. Patient yesterday and today has some numbness in his feet. With persistent hypercalcemia will give a dose of pamidronate while hypercalcemia etiology workup is ongoing.
Improving breathing. Moving air more without any active bronchospasm. Continue to wean oxygen. Continue steroids per pulmonary.
Continue PT OT.
Original Note:
Today's Communication/Plan
-
Trial of Void tomorrow. Home o2 trial tomorrow.
Assessment / Plan
Assessment / Plan
79 year old Man
Home o2 trial tomorrow AM as patient is continuing to improve/requiring less O2
#Progressive SOB/Dyspnea
- Has recently been put on supplemental O2 with progression to 3L over one month. CXR + for hyperinflated lungs.
- Echo was done which showed EF 60%. No signs of volume overload
- LE Venous Doppler negative for DVT. D-dimer elevated, but this can be seen in the setting of LILIAN as well. With negative DVT, low suspicion for PE.
#Acute exacerbation of COPD/Pleural Asbestosis
- Received one dose of dexamethasone with little relief in SOB. Prior use of steroids without relief. Suspect less likely reactive airway contribution to dyspnea presentation. Will wean steroids per Pulmonary.
- C/w home regimen of nebs/Mucinex/Pulmicort/Tessalon Pearls TID/duonebs
- Obtain Chest CT
- Pulm following
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
- Elevated Artifacts Conservator to 2.5 (was 1.8 in 2023), BUN 39.
- Hold Lisinopril. C/w Flomax/Finasteride
- Nephro following
- Continued Improvement in automatic lathe setter/BUN. Trial of Void/remove Caldwell tomorrow AM.
#Hyperkalemia
- 5.4 -> 6.0. ECG on admission showing peaked T waves
- s/p insulin/dextrose & Lokelma + IVF NS infusion
- K 5.4 today. C/w IVF/Lokelma
#Hypercalcemia - 12.2 on admission.
- PTH/Vitamin D wnl. Rest of paraprotein workup per nephro is pending
- c/w IVF NS
- will give pamidronate
#Constipation - will add miralax now and marcelino to encourage BMs
#Complex Renal Cyst - Found on Renal u/s. OK to follow up as outpatient with nephro
#Essential Hypertension - Holding lisinopril as above, holding Amlodipine
#Hypercholesterolemia - c/w Lipitor
#Anxiety - c/w Xanax 1mg TID prn
#BPH - c/w finasteride as above
Diet: Regular
DVT Ppx - heparin SC
Code Status - DNR
Anticipated Discharge: 24 - 48 hours
Subjective/Interval History
-
Feeling better this morning. his shortness of breath is improving, as is the numbness in his lower extremities. he has no new acute symptoms.
Objective Data
-
Labs:
Laboratory Results
09/15/24
06:21
WBC 11.7 H
Hgb 9.7 L
Hct 29.3 L
Plt Count 268
Sodium 141
Potassium 4.6
Chloride 108 H
Carbon Dioxide 25
BUN 44 H
Creatinine 1.8 H
Glucose 132 H
Calcium 11.6 H
Vital Signs:
Vital Signs
Temp Pulse Resp BP Pulse Ox
97.8 F 77 16 112/55 98
09/15/24 07:00 09/15/24 08:18 09/15/24 08:18 09/15/24 07:00 09/15/24 08:18
I&O
09/14/24 09/15/24 09/16/24
06:59 06:59 06:59
Intake Total 1919 1680 / 1680
Output Total 2024 1650 / 1650
Balance -105 / -105
Review of Systems
-
History Source: Patient
Constitutional: Denies Fever, Night Sweats or Chills
EENT: Denies Sore Throat or Runny Nose
Respiratory: Reports Trouble Breathing; Denies Cough, Hemoptysis, Wheezing or Pleurisy
Cardiac: Denies Chest Pain, Palpitations or Syncope
Abdomen/GI: Denies Abdominal Pain, Nausea, Vomiting or Diarrhea
Genitourinary: Denies Dysuria or Flank Pain
Musculoskeletal: Denies Joint Pain, Joint Swelling or Muscle Pain
Neuro: Denies Headache or Weakness
Physical Exam
-
General: Well Developed, Well Nourished, No Apparent Distress and Appears Chronically Ill
HEENT: Normocephalic, Atraumatic, Moist Mucous Membranes, Anicteric, [place] Conjunctivae and PERRLA
Respiratory: Rhonchi and Decreased Breath Sounds; Negative Wheezes or Rales
Cardiac: Regular Rhythm and S1/S2; Negative Murmur or Rub
GI: Soft, Nontender, Nondistended and Normal Bowel Sounds
Musculoskeletal: No Clubbing, No Cyanosis and No Edema
Skin: Warm, Dry and IV Access / Catheter Site
Neuro: AO x 3
Psych: Calm
[2024-09-15] MEDS: DECADRON 4 MG IV ×2 (08:54→19:34)
[2024-09-15] MEDS: PROSCAR 5 MG PO (08:54)
[2024-09-15] MEDS: FLOMAX 0.4 MG PO (08:54)
[2024-09-15] MEDS: MUCINEX 1200 MG PO ×2 (08:54→19:34)
[2024-09-15] MEDS: ASPIRIN 325 MG PO (08:54)
[2024-09-15] MEDS: AREDIA 270 MG IV (09:55)
[2024-09-15 10:11] VITALS: BP 135/82; PULSE 82; O2SAT 94
--- NOTE | 2024-09-15 10:36 | W.PN.PUL3 ---
Today's Communication / Plan
-
Continue steroids, no change
Check ambulatory saturation on 2 L, PT/OT
Continue management per nephrology. Creatinine improving
Hypercalcemia persists
Will require close follow-up postdischarge with pulmonary. 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
Assessment
-
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
respiratory symptoms, admitted for acute COPD exacerbation, hypoxic respiratory insufficiency requiring 3 L
Progressive dyspnea x 1 month
Failed outpatient course of antibiotics and steroids over the past month
Per primary maintenance technician at [facility] ([facility])
Persistent bronchitis
Leukopenia
Hyperkalemia
Acute renal insufficiency, creatinine 2.4
1.81 2 weeks prior, 1.2 in 07/09/2023
Hypercalcemia
Aortic sclerosis per echo
Normal RV size and function, PA pressure 31
Per echo 09/13/2024
Abnormal EKG
Marginal blood pressure
Conditions present prior to admission
Hypertension/hyperlipidemia
History of coronary disease with stent in the past
Moderate to severe emphysema per imaging 2021
Pleural calcifications, consistent with asbestos related lung disease
Pulmonary cachexia, weight loss
Chronic hypoxia, on home oxygen since August 2024
DNR
Plan/recommendations
At this time, patient appears to be moving in the right direction
Episode of nausea overnight noted. Presently on 3 L. Typically is on 2 L at home
Progressive shortness of breath, weakness, fatigue x 1 month despite steroids and antibiotics as outpatient, per primary pulmonary
Hypercalcemia is also noted, renal insufficiency is also noted, improving
CT chest from 2021 with pleural calcifications
Current chest x-ray without any obvious acute findings
Today he is somewhat improved, mental status improved
Chest exam, moving air better, although still decreased overall. Baseline unknown
Moving forward
Continue with current regimen
Echocardiogram with normal biventricular function, no obvious explanation for oxygen requirement
He does have moderate emphysema per imaging in 2021
PT/OT, check ambulatory saturation on 2 L which is his baseline
For now continue with IV fluids, nephrology now following for hypercalcemia
He is moving air better on exam
We will continue current dose of dexamethasone, 4 mg twice a day. No changes today
Dopplers negative for DVT
Continue nebulized therapy for now.
May require additional testing for hypercalcemia
Nephrology following
This may include CT imaging but for now we will hold off
Renal ultrasound reviewed
Hyperkalemia improved
DVT prophylaxis: Continue subcutaneous heparin
GI prophylaxis: Will add given episode of nausea
Reviewed with patient
Disposition efforts
Subjective Data
-
Date of Service:
Date of Service: September 15, 2024
Subjective:
Patient had an episode of nocturnal nausea, bumped up to 3 L overnight. Otherwise he continues to improve. Has mild cough, occasionally productive. Denies chest pain, nausea this morning, denies abdominal pain, heartburn
Objective Data
Data Reviewed
Vital Signs / I&O / Oxygen:
Vital Signs
Temp Pulse Resp BP Pulse Ox
97.8 F 77 16 112/55 98
09/15/24 07:00 09/15/24 08:18 09/15/24 08:18 09/15/24 07:00 09/15/24 08:18
Intake and Output
09/14/24 09/15/24 09/16/24
06:59 06:59 06:59
Intake Total 1919 1680 / 1680
Output Total 2024 1650 / 1650
Balance -105 / -105 30 / 30
SaO2 98
Nasal Cannula flow liters per 2
minute
Physical Exam
General: Comfortable
HEENT: Normocephalic and Anicteric
Cardiovascular: S1-S2, Regular Rhythm, Murmur (n), Rub (n), Peripheral Edema (n) and Calf Tenderness (n)
Respiratory: Wheeze (Mild), Crackles (n), Rhonchi and Other (Decreased breath sounds)
GI: Soft, Non Distended and Non Tender (No midepigastric tenderness)
Neurology: Awake, Alert and No Motor Deficits
Skin: Cyanosis (n), Jaundice (n) and Rash (n)
Labs/Micro/Reports
Lab Data
09/15/24 06:21
09/15/24 06:21
Microbiology
09/12/24 14:38 Nasal Swab Influenza Types A & B (PACO) - Final
Negative for Influenza A & B, NAAT
Negative results must be combined with clinical observations
and patient history.
Nucleic Acid Amplification test (NAAT)performed on the
[employer] platform.
--- NOTE | 2024-09-15 10:38 | W.PN.NEPH.PH ---
Today's Communication / Plan
-
Follow BMP
IV fluids another day
Calcium and potassium improved
Creatinine at 1.8, unsure baseline, may continue to improve with resolution of hypercalcemia
Hypercalcemia workup in progress
Assessment/Plan
-
IMP:
COPD exacerbation
acute kidney injury
hyperkalemia
Hypercalcemia
Anemia
CAD
benign hypertension
BPH
Plan:
A/w COPD exacerbation
Creatinine down to 1.8, non oliguric via galdamez, timothy held
LILIAN-no clear baseline available, last cr 1.8 2weeks ago, and 1.2 in 2022
UA was bland, U PCR only 0.3gm/gm of cr
PVR 190cc on renal US, no hydro, non oliguric with galdamez, cr improving
Urine protein to creatinine ratio 300 mg
has complex cyst need f/u out pt, he is set to see DR Venegas
hyperkalemia-improved, on Lokelma can now stop
Hypercalcemia-pt only on Vit D at home-hold for now, no soy meds, calcium slowly improving to 11.6, pamidronate was given earlier this morning
PTH is normal(should be suppressed with hypercalcemia) suspect hyperparathyroidism, pending paraprotein w/u
normal vit D
cont IVF another day, echo was normal, low BNP
BP soft, monitor for now-holding Amlodipine and ACEI
avoid nephrotoxins
-
-
Date of Service: September 15, 2024
CC / HPI / ROS
-
Chief Complaint:
LILIAN, high soy and high k
History of Present Illness:
cr better at 1.8, non oliguric with galdamez
k better at 4.6, soy slow to improve at 11.6 (pamidronate given this am)
Bp stable
on O2 NC
Review of Systems:
no cp
sob slow to improve, able to cough up now
no fever
Labs
-
Labs:
WBC 11.7 10^3/uL (4.8-10.8) H 09/15/24 06:21
RBC 3.04 10^6/uL (4.70-6.10) L 09/15/24 06:21
Hgb 9.7 g/dL (13.0-18.0) L 09/15/24 06:21
Hct 29.3 % (39.0-52.0) L 09/15/24 06:21
Plt Count 268 10^3/uL (130-400) 09/15/24 06:21
Sodium 141 mmol/L (135-145) 09/15/24 06:21
Potassium 4.6 mmol/L (3.5-5.1) 09/15/24 06:21
Chloride 108 mmol/L (98-107) H 09/15/24 06:21
Carbon Dioxide 25 mmol/L (22-30) 09/15/24 06:21
BUN 44 mg/dl (9-20) H 09/15/24 06:21
Creatinine 1.8 mg/dL (0.7-1.3) H 09/15/24 06:21
eGFR 38.05 09/15/24 06:21
Glucose 132 mg/dl (70-99) H 09/15/24 06:21
Calcium 11.6 mg/dl (8.4-10.2) H 09/15/24 06:21
Phosphorus 3.7 mg/dl (2.5-4.5) 09/15/24 06:21
Fga-P-Yjhywtkbmjf Pept 282 pg/ml 09/12/24 16:48
Albumin 3.2 g/dl (3.5-5.0) L 09/15/24 06:21
Physical Exam
-
Vital Signs:
Vital Signs
Temp Pulse Resp BP Pulse Ox
97.8 F 77 16 112/55 98
09/15/24 07:00 09/15/24 08:18 09/15/24 08:18 09/15/24 07:00 09/15/24 08:18
Cardiovascular:: Regular rate and rhythm
Respiratory:: Bilateral: Coarse (decreased breath sounds to bases)
Lung Excursion:: Normal (decreased BS)
Abdomen:: Nontender and Soft
Extremity Edema:: None: Bilateral:
Galdamez Catheter: Yes
[2024-09-15] MEDS: PROTONIX 40 MG PO (12:27)
[2024-09-15] MEDS: MIRALAX 17 GRAMS PO (13:31)
[2024-09-15 15:25] VITALS: BP 156/53
--- NOTE | 2024-09-15 16:03 | CM ---
LEROY met with Mat at bedside to complete IA. He lives alone in 1 story condo on the 3rd floor; elevator access, however climbs the stairs for his own wellbeing.
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
Therapy recommends home care; pt currently declining - follow up pror to discharge to re-offer VN.
[2024-09-15] MEDS: VITAMIN B-12 2000 MCG PO (17:06)
[2024-09-15] MEDS: FOLVITE 1 MG PO (17:06)
[2024-09-15] MEDS: FLORASTOR 250 MG PO (17:06)
[2024-09-15] MEDS: XANAX 1 MG PO (19:34)
[2024-09-15 23:36] VITALS: BP 125/66
[2024-09-16] MEDS: XANAX 1 MG PO ×2 (02:35→21:00)
[2024-09-16] MEDS: NSS 1000 IV (05:51)
[2024-09-16 06:00] VITALS: BMI 22.6
[2024-09-16 06:29] LABS: Vitamin D 1,25 Dihydroxy 41.1 pg/mL (19.9-79.3)
[2024-09-16 07:10] VITALS: BP 133/52
[2024-09-16] MEDS: PULMICORT 0.5 MG INH ×2 (07:42→19:10)
[2024-09-16] MEDS: DUONEB 3 ML INH ×4 (07:42→19:10)
[2024-09-16 07:54] LABS: % Basophils 0.1 % (0-2); % Immature Granulocytes 1.9 % (0-0.5); % Lymphocytes 5.2 % (20.5-51.1); % Monocytes 4.1 % (1.7-9.3); % Neutrophils 88.7 % (42.2-75.2); Absolute Immature Granulocytes 0.2 10^3/uL (0-0.05); Absolute Lymphocytes 0.5 10^3/uL (1.2-3.4); Absolute Monocytes 0.4 10^3/uL (0.1-0.6); Absolute Neutrophils 8.4 10^3/uL (1.4-6.5); Hematocrit 26.4 % (39.0-52.0); Hemoglobin 9.2 g/dL (13.0-18.0); Mean Corp Hgb Conc. 34.8 g/dL (33.0-37.0); Mean Corpuscular Hgb 32.6 pg (27.0-31.0); Mean Corpuscular Volume 93.6 fL (80.0-94.0); Mean Platelet Volume 8.9 fL (7.4-10.4); Nucleated Red Blood Cells % 0 % (-); Platelet Count 236 10^3/uL (130-400); Red Blood Cell Count 2.82 10^6/uL (4.70-6.10); Red Cell Dist. Width 11.6 % (11.5-14.5); White Blood Cell Count 9.4 10^3/uL (4.8-10.8)
[2024-09-16 08:06] LABS: Albumin 2.7 g/dl (3.5-5.0); Blood Urea Nitrogen 44 mg/dl (9-20); Carbon Dioxide 26 mmol/L (22-30); Chloride 110 mmol/L (98-107); Estimated Creatinine Clearance 36 ml/min; Glucose 111 mg/dl (70-99); Phosphorus 2.9 mg/dl (2.5-4.5); Potassium 4.4 mmol/L (3.5-5.1); Sodium 141 mmol/L (135-145); eGFR 40.75
[2024-09-16] MEDS: STRIVERDI RESPIMAT 2 PUFF INH (08:07)
[2024-09-16] MEDS: PROTONIX 40 MG PO (08:26)
[2024-09-16] MEDS: FLOMAX 0.4 MG PO (08:26)
[2024-09-16] MEDS: PROSCAR 5 MG PO (08:26)
[2024-09-16] MEDS: ASPIRIN 325 MG PO (08:26)
[2024-09-16] MEDS: MUCINEX 1200 MG PO ×2 (08:26→20:54)
[2024-09-16] MEDS: DECADRON 4 MG IV ×2 (08:27→20:53)
[2024-09-16] MEDS: MIRALAX 17 GRAMS PO (08:27)
--- NOTE | 2024-09-16 09:32 | W.PN.NEPH.PH ---
Today's Communication / Plan
-
No more IV fluids
Follow BMP
Calcium and creatinine improved
Hypercalcemia workup pending
Assessment/Plan
-
IMP:
COPD exacerbation
acute kidney injury
hyperkalemia
Hypercalcemia
Anemia
CAD
benign hypertension
BPH
Plan:
A/w COPD exacerbation
Creatinine down to 1.7, non oliguric via galdamez, timothy held
Galdamez removed this a.m. on voiding trial needs postvoid bladder check as patient has not urinated yet
LILIAN-no clear baseline available, last cr 1.8 2weeks ago, and 1.2 in 2022
UA was bland, U PCR only 0.3gm/gm of cr
PVR 190cc on renal US, no hydro, non oliguric with galdamez, cr improving
Urine protein to creatinine ratio 300 mg
has complex cyst need f/u out pt, he is set to see DR Venegas
hyperkalemia-improved, on Lokelma can now stop
Hypercalcemia-pt only on Vit D at home-hold for now, no soy meds, calcium slowly improving to 11.6, pamidronate was given earlier this morning
PTH is normal(should be suppressed with hypercalcemia) suspect hyperparathyroidism, pending paraprotein w/u
normal vit D
No more IV fluids after current bag completed
BP stable, monitor for now-holding Amlodipine and ACEI
avoid nephrotoxins
-
-
Date of Service: September 16, 2024
CC / HPI / ROS
-
Chief Complaint:
LILIAN, high soy and high k
History of Present Illness:
cr better at 1.7, non oliguric with galdamez
k better at 4.6, soy slow to improve at 11. (pamidronate given this am)
Bp stable
on O2 NC
Review of Systems:
no cp
sob slow to improve, able to cough up now
no fever
Labs
-
Labs:
WBC 9.4 10^3/uL (4.8-10.8) 09/16/24 06:43
RBC 2.82 10^6/uL (4.70-6.10) L 09/16/24 06:43
Hgb 9.2 g/dL (13.0-18.0) L 09/16/24 06:43
Hct 26.4 % (39.0-52.0) L 09/16/24 06:43
Plt Count 236 10^3/uL (130-400) 09/16/24 06:43
Sodium 141 mmol/L (135-145) 09/16/24 06:43
Potassium 4.4 mmol/L (3.5-5.1) 09/16/24 06:43
Chloride 110 mmol/L (98-107) H 09/16/24 06:43
Carbon Dioxide 26 mmol/L (22-30) 09/16/24 06:43
BUN 44 mg/dl (9-20) H 09/16/24 06:43
Creatinine 1.7 mg/dL (0.7-1.3) H 09/16/24 06:43
eGFR 40.75 09/16/24 06:43
Glucose 111 mg/dl (70-99) H 09/16/24 06:43
Calcium 11.0 mg/dl (8.4-10.2) H 09/16/24 06:43
Phosphorus 2.9 mg/dl (2.5-4.5) 09/16/24 06:43
Xed-E-Inhbzxnevcc Pept 282 pg/ml 09/12/24 16:48
Albumin 2.7 g/dl (3.5-5.0) L 09/16/24 06:43
Physical Exam
-
Vital Signs:
Vital Signs
Temp Pulse Resp BP Pulse Ox
97.3 F 87 18 133/52 96
09/16/24 07:10 09/16/24 07:45 09/16/24 07:45 09/16/24 07:10 09/16/24 07:45
Cardiovascular:: Regular rate and rhythm
Respiratory:: Bilateral: Coarse (decreased breath sounds to bases)
Lung Excursion:: Normal (decreased BS)
Abdomen:: Nontender and Soft
Extremity Edema:: None: Bilateral:
Galdamez Catheter: Yes
--- NOTE | 2024-09-16 13:50 | W.PN.HOSP.TC ---
Today's Communication/Plan
-
Trial today. Bladder scans.
Wean steroids per pulmonary
Home O2 eval
DC planning
Assessment / Plan
Assessment / Plan
79 year old Man
#Progressive SOB/Dyspnea
- Has recently been put on supplemental O2 with progression to 3L over one month. CXR + for hyperinflated lungs.
- Echo was done which showed EF 60%. No signs of volume overload
- LE Venous Doppler negative for DVT. D-dimer elevated, but this can be seen in the setting of LILIAN as well. With negative DVT,no cp, no tachy, low suspicion for PE.
#Acute exacerbation of COPD/Pleural Asbestosis
- Received one dose of dexamethasone with little relief in SOB. Prior use of steroids without relief. Suspect less likely reactive airway contribution to dyspnea presentation. Will wean steroids per Pulmonary.
- C/w home regimen of nebs/Mucinex/Pulmicort/Tessalon Pearls TID/duonebs
- Obtain Chest CT
- Pulm following
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
- Elevated Van Driver Helper to 2.5 (was 1.8 in 2023), BUN 39. Improving Cr
- Hold Lisinopril. C/w Flomax/Finasteride
- Nephro following
- Continued Improvement in clearance cutter/BUN. Trial of Void/remove Caldwell tomorrow today.
#Hyperkalemia
- 5.4 -> 6.0. ECG on admission showing peaked T waves
- s/p insulin/dextrose & Lokelma + IVF NS infusion
- [place] today. DC further IVF/Lokelma
#Hypercalcemia - 12.2 on admission.
- PTH/Vitamin D wnl. Rest of paraprotein workup per nephro is pending
- DC IVF NS
- s/p pamidronate
- Ca 11.0 today
#Constipation -cw miralax now and marcelino to encourage BMs
#Complex Renal Cyst - Found on Renal u/s. OK to follow up as outpatient with nephro
#Essential Hypertension - Holding lisinopril as above, holding Amlodipine
#Hypercholesterolemia - c/w Lipitor
#Anxiety - c/w Xanax 1mg TID prn
#BPH - c/w finasteride as above
Diet: Regular
DVT Ppx - heparin SC
Code Status - DNR
Home O 2 eval
DC planning -likely in am if stable
Anticipated Discharge: Within 24 hours
Subjective/Interval History
-
Date of Service: September 16, 2024
Caldwell out this am. Able to urinate after . Denies any retention symptoms currently.
Breathing improved.
Objective Data
-
Labs:
Laboratory Results
09/16/24
06:43
WBC 9.4
Hgb 9.2 L
Hct 26.4 L
Plt Count 236
Sodium 141
Potassium 4.4
Chloride 110 H
Carbon Dioxide 26
BUN 44 H
Creatinine 1.7 H
Glucose 111 H
Calcium 11.0 H
Vital Signs:
Vital Signs
Temp Pulse Resp BP Pulse Ox
97.3 F 63 18 133/52 97
09/16/24 07:10 09/16/24 11:14 09/16/24 11:14 09/16/24 07:10 09/16/24 11:14
I&O
09/15/24 09/16/24 09/17/24
06:59 06:59 06:59
Intake Total 1680 / 1680 1590 / 1590 1440 / 1440
Output Total 1650 / 1650 200 / 200 875 / 875
Balance 30 / 30 1390 / 1390 565 / 565
Review of Systems
-
Constitutional: Denies Fever
Respiratory: Reports Trouble Breathing
Cardiac: Denies Chest Pain
Abdomen/GI: Denies Abdominal Pain, Nausea or Vomiting
Neuro: Denies Dizzy
Physical Exam
-
General: Comfortable
Respiratory: Clear to Auscultation and Non Labored Respirations; Negative Accessory Resp Muscle Use
Cardiac: Regular Rhythm and S1/S2
GI: Soft
Neuro: AO x 3
Data Reviewed
-
Labs: Labs Reviewed by me
[2024-09-16 15:20] VITALS: BP 141/54
--- NOTE | 2024-09-16 16:41 | W.PN.PUL3 ---
Today's Communication / Plan
-
Continue nebulizer therapy while in the hospital
Dexamethasone continues, hopefully to prednisone in the next 24 hours
Hypercalcemia workup
Oxygen supplementation-baseline
Assessment
-
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
respiratory symptoms, admitted for acute COPD exacerbation, hypoxic respiratory insufficiency requiring 3 L
Progressive dyspnea x 1 month
Failed outpatient course of antibiotics and steroids over the past month
Per primary sales project engineer at [facility] ([facility])
Persistent bronchitis
Leukopenia
Hyperkalemia
Acute renal insufficiency, creatinine 2.4
1.81 2 weeks prior, 1.2 in 07/09/2023
Hypercalcemia
Aortic sclerosis per echo
Normal RV size and function, PA pressure 31
Per echo 09/13/2024
Abnormal EKG
Marginal blood pressure
Conditions present prior to admission
Hypertension/hyperlipidemia
History of coronary disease with stent in the past
Moderate to severe emphysema per imaging 2021
Pleural calcifications, consistent with asbestos related lung disease
Pulmonary cachexia, weight loss
Chronic hypoxia, on home oxygen since August 2024
DNR
Plan/recommendations
Clinically improved. 09/16/2024.
Typically on 2 L of supplemental oxygen-close to baseline.
Progressive shortness of breath, weakness, fatigue x 1 month despite steroids and antibiotics as outpatient, per primary pulmonary
-
Hypercalcemia is also noted, renal insufficiency is also noted, improving-nephrology following.
-
CT chest from 2021 with pleural calcifications
Current chest x-ray without any obvious acute findings
Dopplers negative for DVT
Moving better air. 09/16/2024.
Plan:
Continue with current regimen while in the hospital.
Dexamethasone 4 mg IV every 12-hopefully to prednisone in the next 24 hours if continues to improve.
Pulmicort twice a day while in the hospital
Ipratropium/albuterol 4 times a day while in the hospital
Can return to usual inhaler regimen upon discharge:
Usually on ANORO/
Echocardiogram with normal biventricular function, no obvious explanation for oxygen requirement
He does have moderate emphysema per imaging in 2021
PT/OT, check ambulatory saturation on 2 L which is his baseline
Acute kidney injury/CKDHypercalcemia workup per neurology nephrology
May need require CT of the chest if there is no obvious reason for hypercalcemia. Hold for now.
Renal ultrasound reviewed
Hyperkalemia improved
Anemia likely contributing to shortness of breath hemoglobin has been steadily declining. Currently 9.2.
Workup per primary team
DVT prophylaxis: Continue subcutaneous heparin
GI prophylaxis: Will add given episode of nausea
Reviewed with patient
Disposition efforts
Subjective Data
-
Date of Service:
Date of Service: September 16, 2024
Chief Complaint: Pulmonary Follow Up (Acute exacerbation of COPD)
Subjective:
Feels better from a COPD perspective
Review of Systems
Cardiopulmonary: Dyspnea (Improved), Dyspnea on Exertion (Improved) and Wheezing ( improved)
Objective Data
Data Reviewed
Vital Signs / I&O / Oxygen:
Vital Signs
Temp Pulse Resp BP Pulse Ox
97.6 F 74 16 141/54 97
09/16/24 15:20 09/16/24 15:29 09/16/24 15:29 09/16/24 15:20 09/16/24 15:29
Intake and Output
09/15/24 09/16/24 09/17/24
06:59 06:59 06:59
Intake Total 1680 / 1680 1590 / 1590 1440 / 1440
Output Total 1650 / 1650 200 / 200 875 / 875
Balance 30 / 30 1390 / 1390 565 / 565
SaO2 97
Nasal Cannula flow liters per 2
minute
Physical Exam
General: Comfortable
HEENT: Normocephalic and Anicteric
Cardiovascular: S1-S2, Regular Rhythm, Murmur (n), Rub (n), Peripheral Edema (n) and Calf Tenderness (n)
Respiratory: Wheeze (Mild), Crackles (n), Rhonchi and Other (Decreased breath sounds)
GI: Soft, Non Distended and Non Tender (No midepigastric tenderness)
Neurology: Awake, Alert and No Motor Deficits
Skin: Cyanosis (n), Jaundice (n) and Rash (n)
Labs/Micro/Reports
Lab Data
09/16/24 06:43
09/16/24 06:43
[2024-09-16] MEDS: VITAMIN B-12 2000 MCG PO (17:01)
[2024-09-16] MEDS: FOLVITE 1 MG PO (17:01)
[2024-09-16] MEDS: FLORASTOR 250 MG PO (17:01)
--- NOTE | 2024-09-16 17:25 | PTCARENOTE ---
pt s/p Caldwell removal. pt with decreased urine output with PVR. MD made aware. follow bladder scan protocol at this time.
[2024-09-16 21:53] LABS: 24 Hour Urine Total Volume Random mL; Urine Collection Length Random hr; Urine Free Kappa Light Chains 9.22 mg/L (0.00-32.90); Urine Free Lambda Light Chains 1.34 mg/L (0.00-3.79)
[2024-09-16 23:48] VITALS: BP 138/54
[2024-09-17 05:10] VITALS: BMI 22.5
[2024-09-17 07:15] VITALS: BP 136/68
[2024-09-17] MEDS: PULMICORT 0.5 MG INH (07:33)
[2024-09-17] MEDS: STRIVERDI RESPIMAT 2 PUFF INH (07:33)
[2024-09-17] MEDS: DUONEB 3 ML INH (07:33)
[2024-09-17 07:34] LABS: % Basophils 0.1 % (0-2); % Immature Granulocytes 3.3 % (0-0.5); % Lymphocytes 6.5 % (20.5-51.1); % Neutrophils 85.1 % (42.2-75.2); Absolute Immature Granulocytes 0.3 10^3/uL (0-0.05); Absolute Lymphocytes 0.6 10^3/uL (1.2-3.4); Absolute Monocytes 0.5 10^3/uL (0.1-0.6); Absolute Neutrophils 7.9 10^3/uL (1.4-6.5); Hematocrit 31.3 % (39.0-52.0); Hemoglobin 10.2 g/dL (13.0-18.0); Mean Corp Hgb Conc. 32.6 g/dL (33.0-37.0); Mean Corpuscular Hgb 31.4 pg (27.0-31.0); Mean Corpuscular Volume 96.3 fL (80.0-94.0); Mean Platelet Volume 8.8 fL (7.4-10.4); Nucleated Red Blood Cells % 0 % (-); Platelet Count 255 10^3/uL (130-400); Red Blood Cell Count 3.25 10^6/uL (4.70-6.10); Red Cell Dist. Width 11.8 % (11.5-14.5); White Blood Cell Count 9.2 10^3/uL (4.8-10.8)
[2024-09-17 08:00] LABS: Blood Urea Nitrogen 41 mg/dl (9-20); Calcium 11.1 mg/dl (8.4-10.2); Carbon Dioxide 23 mmol/L (22-30); Chloride 110 mmol/L (98-107); Estimated Creatinine Clearance 36 ml/min; Glucose 120 mg/dl (70-99); Potassium 4.4 mmol/L (3.5-5.1); Sodium 142 mmol/L (135-145); eGFR 40.75
[2024-09-17] MEDS: ASPIRIN 325 MG PO (09:04)
[2024-09-17] MEDS: MUCINEX 1200 MG PO (09:04)
[2024-09-17] MEDS: PROTONIX 40 MG PO (09:04)
[2024-09-17] MEDS: PROSCAR 5 MG PO (09:04)
[2024-09-17] MEDS: FLOMAX 0.4 MG PO (09:05)
[2024-09-17] MEDS: DECADRON 4 MG IV (09:05)
[2024-09-17] MEDS: MIRALAX 17 GRAMS PO (09:06)
--- NOTE | 2024-09-17 10:55 | W.PN.NEPH.PH ---
Today's Communication / Plan
-
Okay for discharge
We will follow-up as outpatient
Hypercalcemia workup pending
Will need BMP next week
Assessment/Plan
-
IMP:
COPD exacerbation
acute kidney injury
hyperkalemia
Hypercalcemia
Anemia
CAD
benign hypertension
BPH
Plan:
A/w COPD exacerbation
Creatinine down to 1.7, , timothy held
Galdamez removed on voiding trial ok
LILIAN-no clear baseline available, last cr 1.8 2weeks ago, and 1.2 in 2022
UA was bland, U PCR only 0.3gm/gm of cr
PVR 190cc on renal US, no hydro, non oliguric with galdamez, cr improving
Urine protein to creatinine ratio 300 mg
has complex cyst need f/u out pt, he is set to see DR Venegas
hyperkalemia-improved, on Lokelma can now stop
Hypercalcemia-pt only on Vit D at home-hold for now, no soy meds, calcium slowly improving to 11., pamidronate was given during this hospital
PTH is 60 (should be suppressed with hypercalcemia) suspect hyperparathyroidism, pending paraprotein w/u
normal vit D
Okay for discharge Will need BMP next week
BP stable, monitor for now-holding Amlodipine and ACEI
-
-
Date of Service: September 17, 2024
CC / HPI / ROS
-
Chief Complaint:
LILIAN, high soy and high k
History of Present Illness:
cr better at 1.7, non oliguric with galdamez
k better at 4.6, soy slow to improve at 11.1 (pamidronate given this am)
Bp stable
on O2 NC
Review of Systems:
no cp
sob slow to improve, able to cough up now
no fever
Labs
-
Labs:
WBC 9.2 10^3/uL (4.8-10.8) 09/17/24 06:50
RBC 3.25 10^6/uL (4.70-6.10) L 09/17/24 06:50
Hgb 10.2 g/dL (13.0-18.0) L 09/17/24 06:50
Hct 31.3 % (39.0-52.0) L 09/17/24 06:50
Plt Count 255 10^3/uL (130-400) 09/17/24 06:50
Sodium 142 mmol/L (135-145) 09/17/24 06:50
Potassium 4.4 mmol/L (3.5-5.1) 09/17/24 06:50
Chloride 110 mmol/L (98-107) H 09/17/24 06:50
Carbon Dioxide 23 mmol/L (22-30) 09/17/24 06:50
BUN 41 mg/dl (9-20) H 09/17/24 06:50
Creatinine 1.7 mg/dL (0.7-1.3) H 09/17/24 06:50
eGFR 40.75 09/17/24 06:50
Glucose 120 mg/dl (70-99) H 09/17/24 06:50
Calcium 11.1 mg/dl (8.4-10.2) H 09/17/24 06:50
Phosphorus 2.9 mg/dl (2.5-4.5) 09/16/24 06:43
Wki-J-Fnoymsqdvkl Pept 282 pg/ml 09/12/24 16:48
Albumin 2.7 g/dl (3.5-5.0) L 09/16/24 06:43
Physical Exam
-
Vital Signs:
Vital Signs
Temp Pulse Resp BP Pulse Ox
98 F 91 17 136/68 95
09/17/24 07:15 09/17/24 07:42 09/17/24 07:42 09/17/24 07:15 09/17/24 07:42
Cardiovascular:: Regular rate and rhythm
Respiratory:: Bilateral: Coarse (decreased breath sounds to bases)
Lung Excursion:: Normal (decreased BS)
Abdomen:: Nontender and Soft
Extremity Edema:: None: Bilateral:
Galdamez Catheter: Yes
--- NOTE | 2024-09-17 12:03 | W.PN.HOSP.TC ---
Today's Communication/Plan
-
dc
Assessment / Plan
Assessment / Plan
79 year old Man
#Progressive SOB/Dyspnea
- Has recently been put on supplemental O2 with progression to 3L over one month. CXR + for hyperinflated lungs.
- Echo was done which showed EF 60%. No signs of volume overload
- LE Venous Doppler negative for DVT. D-dimer elevated, but this can be seen in the setting of LILIAN as well. With negative DVT,no cp, no tachy, low suspicion for PE.
#Acute exacerbation of COPD/Pleural Asbestosis
- Received one dose of dexamethasone with little relief in SOB. Prior use of steroids without relief. Suspect less likely reactive airway contribution to dyspnea presentation. Will wean steroids per Pulmonary.
- C/w home regimen of nebs/Mucinex/Pulmicort/Tessalon Pearls TID/duonebs
- Pulm following
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
- Elevated Power Plant Engineer to 2.5 (was 1.8 in 2023), BUN 39. Improving Cr
- Hold Lisinopril. C/w Flomax/Finasteride
- Nephro following
- Continued Improvement in sales engineer/BUN. Voiding without issues after galdamez removal.
#Hyperkalemia
- Resolved
#Hypercalcemia - 12.2 on admission.
- PTH/Vitamin D wnl. Rest of paraprotein workup per nephro is pending
- DC IVF NS
- s/p pamidronate
- Ca 11.0
-Follow with Renal - pending SPEP
#Constipation -cw miralax now and marcelino to encourage BMs
#Complex Renal Cyst - Found on Renal u/s. OK to follow up as outpatient with nephro
#Essential Hypertension - Holding lisinopril as above, holding Amlodipine
#Hypercholesterolemia - c/w Lipitor
#Anxiety - c/w Xanax 1mg TID prn
#BPH - c/w finasteride as above
Diet: Regular
DVT Ppx - heparin SC
Code Status - DNR
Medically stable for discharge. Nephrology from today noted.
Discussed with pulmonary who recommends switching to oral steroids starting at 40 and taper.
Patient plans to follow with the pulmonary group here as he moved to this area.
Total time of discharge 32 minutes
Anticipated Discharge: Today
Subjective/Interval History
-
Date of Service: September 17, 2024
Feeling much better. He thinks he does not need oxygen when he is resting only needs it with exertion. He is on 2 L which is his baseline.
Urinating fine after catheter removal without any issues.
He says his breathing is much better he does not feel congested.
He thinks he is ready for home.
Objective Data
-
Labs:
Laboratory Results
09/17/24
06:50
WBC 9.2
Hgb 10.2 L
Hct 31.3 L
Plt Count 255
Sodium 142
Potassium 4.4
Chloride 110 H
Carbon Dioxide 23
BUN 41 H
Creatinine 1.7 H
Glucose 120 H
Calcium 11.1 H
Vital Signs:
Vital Signs
Temp Pulse Resp BP Pulse Ox
98 F 91 17 136/68 95
09/17/24 07:15 09/17/24 07:42 09/17/24 07:42 09/17/24 07:15 09/17/24 07:42
I&O
09/16/24 09/17/24 09/18/24
06:59 06:59 06:59
Intake Total 1590 / 1590 2160 / 2160
Output Total 200 / 200 2380 / 2380
Balance 1390 / 1390 -220 / -220
Review of Systems
-
Constitutional: Denies Fever
EENT: Denies Sore Throat
Cardiac: Denies Chest Pain
Abdomen/GI: Denies Abdominal Pain, Nausea or Vomiting
Neuro: Denies Dizzy
Physical Exam
-
General: Comfortable
Respiratory: Clear to Auscultation, Non Labored Respirations and Accessory Resp Muscle Use; Negative Wheezes or Crackles
Cardiac: Regular Rhythm and S1/S2
GI: Soft
Neuro: AO x 3
Data Reviewed
-
Labs: Labs Reviewed by me
[2024-09-17 14:30] VITALS: BP 131/65
[2024-09-17 14:59] VITALS: BP 131/65
[2024-09-17 19:46] LABS: Angiotensin-1-converting Enzym <10 U/L (16-85)
[2024-09-18 13:02] LABS: Albumin 3.09 g/dL (3.75-5.01); Alpha 1 Globulin 0.42 g/dL (0.19-0.46); Alpha 2 Globulin 0.87 g/dL (0.48-1.05); SPEP IFE Reflex IFE Done; Total Protein-Electrophoresis 5.6 g/dL (6.3-8.2)
[2024-09-18 13:04] LABS: IgA 187 mg/dL (68-408); IgG 613 mg/dL (768-1632); IgM 69 mg/dL (35-263)
== END 2024-09-17 14:21 | disposition home or self-care (01) | DRG 644 ==
LOC: 4 EAST ACU 19:54
PROVIDERS: Nurse Practitioner Family; Physician Assistant Medical; ADMITTING PHYSICIAN Internal Medicine; ATTENDING PHYSICIAN Internal Medicine; CONSULT PHYSICIAN Internal Medicine; EMERGENCY PHYSICIAN Student in an Organized Health Care Education/Training Program; FAMILY PHYSICIAN Family Medicine; OTHER PHYSICIAN Internal Medicine Critical Care Medicine
DX: E21.3 Hyperparathyroidism, unspecified (principal); J44.1 Chronic obstructive pulmonary disease with (acute) exacerbation; N17.9 Acute kidney failure, unspecified; R64 Cachexia; Z87.891 Personal history of nicotine dependence; Z11.52 Encounter for screening for COVID-19; Z77.090 Contact with and (suspected) exposure to asbestos; E87.5 Hyperkalemia; E83.52 Hypercalcemia; F41.9 Anxiety disorder, unspecified; I10 Essential (primary) hypertension; Z66 Do not resuscitate; D64.9 Anemia, unspecified; I25.10 Atherosclerotic heart disease of native coronary artery without angina pectoris; I70.0 Atherosclerosis of aorta; Z68.22 Body mass index [BMI] 22.0-22.9, adult
CPT/HCPCS: 71046; 76770; 80048; 80053; 80069; 82164; 82306; 82550; 82570; 82652; 82784; 82962; 83521; 83880; 83970; 84155; 84156; 84165; 84484; 85025; 85379; 86334; 86335; 87502; 87811; 93005; 93306; 93970; 94640; 96374; 97110; 97116; 97166; 99285; J2430

== ENCOUNTER → 2024-09-27 13:35 | Outpatient (REF) | payer MEDICARE, OTHER, SELFPAY ==
[2024-09-27 15:21] LABS: % Basophils 0.1 % (0-2); % Eosinophils 0.5 % (0-6); % Immature Granulocytes 1.1 % (0-0.5); % Lymphocytes 4.2 % (20.5-51.1); % Monocytes 3.5 % (1.7-9.3); % Neutrophils 90.6 % (42.2-75.2); Absolute Eosinophils 0.1 10^3/uL (0-0.7); Absolute Immature Granulocytes 0.2 10^3/uL (0-0.05); Absolute Lymphocytes 0.6 10^3/uL (1.2-3.4); Absolute Monocytes 0.5 10^3/uL (0.1-0.6); Absolute Neutrophils 13.5 10^3/uL (1.4-6.5); Hematocrit 32.7 % (39.0-52.0); Hemoglobin 10.8 g/dL (13.0-18.0); Mean Corpuscular Hgb 32.4 pg (27.0-31.0); Mean Corpuscular Volume 98.2 fL (80.0-94.0); Mean Platelet Volume 9.5 fL (7.4-10.4); Nucleated Red Blood Cells % 0 % (-); Platelet Count 171 10^3/uL (130-400); Red Blood Cell Count 3.33 10^6/uL (4.70-6.10); Red Cell Dist. Width 12.4 % (11.5-14.5); White Blood Cell Count 14.9 10^3/uL (4.8-10.8)
[2024-09-27 16:02] LABS: ALT (SGPT) 33 U/L (0-50); AST (SGOT) 18 U/L (17-59); Albumin 3.8 g/dl (3.5-5.0); Alkaline Phosphatase 77 U/L (38-126); Blood Urea Nitrogen 25 mg/dl (9-20); Calcium 9.5 mg/dl (8.4-10.2); Carbon Dioxide 31 mmol/L (22-30); Chloride 100 mmol/L (98-107); Glucose 121 mg/dl (70-99); Potassium 5.1 mmol/L (3.5-5.1); Sodium 137 mmol/L (135-145); Total Bilirubin 0.8 mg/dl (0.2-1.3); Total Protein 5.8 g/dl (6.3-8.2); eGFR 43.83
== END ==
LOC: HWLAB 13:35
PROVIDERS: ATTENDING PHYSICIAN Physician Assistant Medical
DX: Z09 Encounter for follow-up examination after completed treatment for conditions other than malignant neoplasm (principal); E87.5 Hyperkalemia; E83.52 Hypercalcemia
CPT/HCPCS: 36415; 80053; 85025

== ENCOUNTER → 2024-10-18 12:07 | Outpatient (REF) | payer MEDICARE, OTHER, SELFPAY ==
[2024-10-18 17:11] LABS: PSA, Total - Diagnostic 7.32 ng/ml (0.0-4.0)
== END ==
LOC: HWLAB 12:07
PROVIDERS: ATTENDING PHYSICIAN Internal Medicine Critical Care Medicine; FAMILY PHYSICIAN Family Medicine; REFERRING PHYSICIAN Surgery
DX: J44.9 Chronic obstructive pulmonary disease, unspecified (principal); Z12.5 Encounter for screening for malignant neoplasm of prostate; N40.1 Benign prostatic hyperplasia with lower urinary tract symptoms
CPT/HCPCS: 36415; 82103; 82104; 84153

== ENCOUNTER → 2024-10-20 12:58 | Outpatient (REF) | payer MEDICARE, OTHER, SELFPAY | LOC: HWRAD 12:58 | PROVIDERS: ATTENDING PHYSICIAN Internal Medicine Critical Care Medicine; FAMILY PHYSICIAN Family Medicine | DX: J92.9 Pleural plaque without asbestos (principal); J92.0 Pleural plaque with presence of asbestos | CPT/HCPCS: 71250 ==

== ENCOUNTER → 2024-11-23 10:25 | Outpatient (REF) | payer MEDICARE, OTHER, SELFPAY ==
[2024-11-23 11:55] LABS: Hematocrit 34.7 % (39.0-52.0); Hemoglobin 11.8 g/dL (13.0-18.0); Mean Corpuscular Hgb 31.3 pg (27.0-31.0); Platelet Count 272 10^3/uL (130-400); Red Blood Cell Count 3.77 10^6/uL (4.70-6.10); Red Cell Dist. Width 12.2 % (11.5-14.5); White Blood Cell Count 7.9 10^3/uL (4.8-10.8)
[2024-11-23 12:25] LABS: Albumin 4.1 g/dl (3.5-5.0); Blood Urea Nitrogen 24 mg/dl (9-20); Calcium 10.2 mg/dl (8.4-10.2); Carbon Dioxide 25 mmol/L (22-30); Chloride 107 mmol/L (98-107); Glucose 100 mg/dl (70-99); Phosphorus 2.8 mg/dl (2.5-4.5); Potassium 4.5 mmol/L (3.5-5.1); Sodium 141 mmol/L (135-145); eGFR 47.36
[2024-11-25 10:46] LABS: Intact PTH 135.6 pg/ml (13.6-85.8)
== END ==
LOC: HWLAB 10:25
PROVIDERS: ATTENDING PHYSICIAN Internal Medicine; FAMILY PHYSICIAN Family Medicine
DX: N18.32 Chronic kidney disease, stage 3b (principal)
CPT/HCPCS: 36415; 80069; 83970; 85027

== ENCOUNTER → 2024-11-24 08:41 | Outpatient (REF) | payer MEDICARE, OTHER, SELFPAY | LOC: RAD 08:41 | PROVIDERS: ATTENDING PHYSICIAN Internal Medicine; FAMILY PHYSICIAN Family Medicine | DX: E21.3 Hyperparathyroidism, unspecified (principal) | CPT/HCPCS: 78071; A9500 ==

== ENCOUNTER → 2025-01-17 11:30 | Outpatient (REF) | payer MEDICARE, OTHER, SELFPAY ==
[2025-01-17 15:57] LABS: Albumin 4.5 g/dl (3.5-5.0); Blood Urea Nitrogen 30 mg/dl (9-20); Calcium 10.7 mg/dl (8.4-10.2); Carbon Dioxide 26 mmol/L (22-30); Chloride 107 mmol/L (98-107); Glucose 93 mg/dl (70-99); Phosphorus 3.6 mg/dl (2.5-4.5); Potassium 4.4 mmol/L (3.5-5.1); Sodium 142 mmol/L (135-145); eGFR 43.83
[2025-01-17 16:12] LABS: Vitamin D, 25-OH*** 70.6 ng/mL (30-80)
[2025-01-17 16:15] LABS: Urine Protein 9 mg/dl
[2025-01-17 16:36] LABS: Protein/creatinine Ratio 0.1
== END ==
LOC: HWLAB 11:30
PROVIDERS: ATTENDING PHYSICIAN Internal Medicine; FAMILY PHYSICIAN Family Medicine
DX: R79.89 Other specified abnormal findings of blood chemistry (principal); E53.8 Deficiency of other specified B group vitamins; E61.1 Iron deficiency; I10 Essential (primary) hypertension; N17.9 Acute kidney failure, unspecified; E83.52 Hypercalcemia
CPT/HCPCS: 36415; 80069; 82306; 82570; 84156

== ENCOUNTER → 2025-01-22 09:32 | Outpatient (REF) | payer MEDICARE, OTHER, SELFPAY | LOC: HWRAD 09:32 | PROVIDERS: ATTENDING PHYSICIAN Internal Medicine Critical Care Medicine; FAMILY PHYSICIAN Family Medicine | DX: R91.1 Solitary pulmonary nodule (principal) | CPT/HCPCS: 71250 ==

== ENCOUNTER → 2025-03-07 13:21 | Outpatient (REF) | payer MEDICARE, OTHER, SELFPAY ==
[2025-03-08 15:06] LABS: Lyme Antibody Screen, EIA Negative (Negative)
== END ==
LOC: HWLAB 13:21
PROVIDERS: ATTENDING PHYSICIAN Family Medicine
DX: M19.90 Unspecified osteoarthritis, unspecified site (principal)
CPT/HCPCS: 36415; 86618

== ENCOUNTER → 2025-04-12 12:01 | Outpatient (REF) | payer MEDICARE, OTHER, SELFPAY ==
[2025-04-12 15:44] LABS: HDL Cholesterol 46 mg/dl; LDL Cholesterol, Calculated 141 mg/dl; Very Low Density Lipoprotein 22 mg/dl (0-30)
== END ==
LOC: HWLAB 12:01
PROVIDERS: ATTENDING PHYSICIAN Family Medicine; REFERRING PHYSICIAN Internal Medicine Cardiovascular Disease
DX: E78.5 Hyperlipidemia, unspecified (principal)
CPT/HCPCS: 36415; 80061

== ENCOUNTER → 2025-05-02 13:16 | Outpatient (REF) | payer MEDICARE, OTHER, SELFPAY ==
[2025-05-02 14:05] LABS: ALT (SGPT) 13 U/L (0-50); AST (SGOT) 17 U/L (17-59); Albumin 4.8 g/dl (3.5-5.0); Alkaline Phosphatase 73 U/L (38-126); Blood Urea Nitrogen 23 mg/dl (9-20); Calcium 10.3 mg/dl (8.4-10.2); Carbon Dioxide 24 mmol/L (22-30); Chloride 108 mmol/L (98-107); Glucose 82 mg/dl (70-99); HDL Cholesterol 39 mg/dl; LDL Cholesterol, Calculated 124 mg/dl; Potassium 4.4 mmol/L (3.5-5.1); Sodium 142 mmol/L (135-145); Total Protein 7.2 g/dl (6.3-8.2); Very Low Density Lipoprotein 26 mg/dl (0-30); eGFR 38.05
[2025-05-02 14:54] LABS: Vitamin D, 25-OH*** 63.3 ng/mL (30-80)
== END ==
LOC: REG 13:16
PROVIDERS: ATTENDING PHYSICIAN Internal Medicine; FAMILY PHYSICIAN Family Medicine; REFERRING PHYSICIAN Internal Medicine Cardiovascular Disease
DX: E78.5 Hyperlipidemia, unspecified (principal); N18.32 Chronic kidney disease, stage 3b; E83.52 Hypercalcemia; E21.3 Hyperparathyroidism, unspecified
CPT/HCPCS: 36415; 80053; 80061; 82248; 82306; 83519; 84100